=== PATIENT | male | born 1945 | race Caucasian/White ===

== ENCOUNTER → 2017-11-07 13:29 | Outpatient (CLI) | payer MEDICARE, OTHER, SELFPAY ==
[2017-11-07 15:19] LABS: Estimated Glomerular Filt Rate > 60.0 mL/min (>60)
== END ==
PROVIDERS: Family Provider Family Medicine; PCP Family Medicine; Visit Provider Radiology Radiation Oncology
DX: C44.320 Squamous cell carcinoma of skin of unspecified parts of face (principal)
CPT/HCPCS: 36415; 82565

== ENCOUNTER → 2017-11-28 11:07 | Outpatient (CLI) | payer OTHER, MEDICARE, SELFPAY ==
[2017-11-28 13:31] LABS: Appearance Urine UA CLOUDY; Bilirubin Urine UA NEGATIVE (NEGATIVE); Color Urine UA YELLOW; Glucose Urine UA NEGATIVE (Normal); Ketones Urine UA NEGATIVE (NEGATIVE); Leukocyte Esterase Urine UA 2+ (NEGATIVE); Nitrite Urine UA POSITIVE (Negative); Occult Blood Urine UA 3+ (Negative); Protein Urine UA 1+ (Negative); Urobilinogen Urine UA 0.2 E.U./dL (0.2)
[2017-11-28 13:41] LABS: RBC Urine 10-30/HPF (0-5/HPF)
[2017-11-28 13:42] LABS: Bacteria Urine Many (>30); Culture Indicated Urine Specimen Cultured; Squamous Epithelial Cell Urine 1-5 /HPF; WBC Urine >100/HPF (0-5/HPF)
== END ==
PROVIDERS: Family Provider Family Medicine; PCP Family Medicine; Visit Provider Family Medicine
DX: R30.0 Dysuria (principal); R35.0 Frequency of micturition
CPT/HCPCS: 81001; 87077; 87086; 87186

== ENCOUNTER → 2018-01-26 11:17 | Outpatient (CLI) | payer MEDICARE, OTHER, SELFPAY ==
[2018-01-26 12:19] LABS: Estimated Glomerular Filt Rate > 60.0 mL/min (>60)
--- NOTE | 2018-03-21 08:00 | ONC.NAV ---
Description: T[facility]C with [facility] re: [place] [facility] benefit (late entry, called on 03/20/18) Activity: Called the [facility] and spoke with Korin in the cancer clinic. She states that their committee met and agreed to authorize pt's [place] Choice benefit for pt's oncology tx here at [facility]. She stated it could take until the end of the week for it to show as effective in the [facility] Choice system, and that it should show as 03/20/18 as the effective date. Plan: This [employer]AGE [employer]ER will f/u on with calling the [facility] [employer] program to clarify effective date of eligibility.
== END ==
PROVIDERS: PCP Family Medicine; Visit Provider Radiology Radiation Oncology
DX: C44.320 Squamous cell carcinoma of skin of unspecified parts of face (principal)
CPT/HCPCS: 36415; 82565

== ENCOUNTER 2018-02-02 21:18 | Inpatient (IN) | payer MEDICARE, SELFPAY ==
--- NOTE | 2018-02-02 21:22 | ED.SYNCOPE ---
HPI - Syncope General Chief Complaint: Syncope Stated Complaint: Syncope Time Seen by Provider: 02/02/18 21:20 Source: patient and family Mode of arrival: EMS Limitations: no limitations History of Present Illness HPI narrative: 72-year-old male with a history of CVA, AFib on Xarelto presents with syncope. He was [place] a local [place] and passed out sitting a gambling she. He says he felt a bit funny prior to the episode. When EMS arrived they found him to be pale with cyanotic fingers and slightly obtained. He improved during transport and on arrival was alert oriented x3 but still pale and ill-appearing. He states he has had dark stools for the past few days. Patient denies any chest pain or shortness of breath MD complaint: loss of consciousness Onset (ago): minute(s) Prodromal symptoms: lightheaded Witnessed: yes - by bystander Context: at rest Injuries sustained associated with event: none Current symptoms: back to baseline Treatments prior to arrival: IV fluids Related Data Previous Rx's Medication Instructions Recorded Disabled Parking Permit ea #1 02/24/17 pantoprazole 40 mg PO 0600,2100 #58 tab 05/03/17 albuterol sulfate [Ventolin HFA] 2 puff INH Q4HP PRN #1 ea 07/05/17 benzonatate 100 mg PO TIDP PRN #30 cap 07/05/17 lisinopril 10 mg PO QDAY #30 tab 09/28/17 metoprolol succinate [Toprol XL] 100 mg PO QDAY #30 tab 09/28/17 atorvastatin 40 mg PO HS #90 tab 09/29/17 rivaroxaban 15 mg tablet 15 mg PO QDAY #30 tab 01/23/18 Allergies Allergy/AdvReac Type Severity Reaction Status Date / Time No Known Drug Allergies Allergy Verified 02/02/18 21:43 Review of Systems Review of Systems All systems reviewed & are unremarkable except as noted in HPI and below Constitutional Denies chills, Denies fever(s), Denies lethargy and Denies weakness Eyes Denies change in vision, Denies eye discharge, Denies irritation and Denies loss of vision ENT Ears, Nose, Mouth, and Throat: Denies change in voice, Denies neck pain and Denies sore throat Cardiovascular Denies chest pain, Denies irregular heart rhythm, Denies lightheadedness, Denies palpitations, Denies dyspnea, Denies dyspnea on exertion and Denies orthopnea Respiratory Denies cough, Denies dyspnea, Denies dyspnea on exertion and Denies wheezing Gastrointestinal Gastrointestinal: Denies abdominal pain, Denies change in bowel habits, Denies diarrhea, Denies nausea and Denies vomiting Genitourinary Denies hematuria, Denies flank pain, Denies urinary incontinence and Denies urinary urgency Musculoskeletal Denies neck pain Integumentary/Breasts Denies pruritus, Denies erythema, Denies rash and Denies wounds Neurologic Denies confusion, Denies loss of vision and Denies weakness Psychiatric Denies anxiety, Denies confusion, Denies depression, Denies homicidal ideation and Denies suicidal ideation Endocrine Denies palpitations Hematologic/Lymphatic Denies easy bruising Allergic/Immunologic Denies wheezing [facility] Medical History Cellulitis of right orbital region (Resolved) Altered mental status (Resolved) Stroke (Resolved) Intraparenchymal hemorrhage of brain (Resolved) TIA (transient ischemic attack) (Resolved) Rectal bleed (Suspected) Influenza A (Resolved) Weakness (Chronic) Benign prostatic hyperplasia (Chronic 09/01/15) Depression (Chronic 09/01/15) History of malignant neoplasm of skin (Chronic 09/01/15) Chronic atrial fibrillation (Chronic 09/29/15) Gastroesophageal reflux disease (Chronic 06/23/16) Fracture of corpus cavernosum penis, initial encounter (Chronic 06/23/16) Chronic fatigue (Chronic 06/23/16) Hyperlipidemia (Chronic) 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) Status post stroke (Chronic 02/24/17) Other specified transient cerebral ischemias (Chronic 03/22/17) Sore throat (Resolved 03/22/17) 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) History of upper gastrointestinal hemorrhage (Chronic 05/10/17) 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) Atrial fibrillation (Acute) CVA (cerebral vascular accident) (Acute) HTN (hypertension) (Acute) Hypertension (Chronic Unknown) Actinic keratosis (Resolved Unknown) Basal cell carcinoma (Resolved 2012) Chickenpox (Resolved) Measles (Resolved) Mumps (Resolved) Skin cancer (Resolved 2012) Surgical History History of facial surgery (Chronic) S/P skin and subcutaneous tissue surgery (Chronic) Social History marital status: unmarried,single household members: none lives independently: Yes Smoking Status: Current every day smoker (A pack a day) Tobacco: How many years used: 60 alcohol intake: never Exam Narrative Exam Narrative: 72-year-old male appears unwell and in distress Initial Vital Signs Initial Vital Signs: Vital Signs Temperature 97.5 F L 02/02/18 21:29 Pulse Rate 101 H 02/02/18 21:29 Respiratory Rate 20 02/02/18 21:29 Blood Pressure 120/68 02/02/18 21:29 Pulse Oximetry 93 02/02/18 21:29 Const General: cooperative, well developed and acute distress Nutritional Appearance: well nourished Orientation: alert, awake, oriented x3 and not confused HENMT Head: normocephalic and atraumatic Ears: external ears normal and TM's normal bilaterally Nose: external nose normal and No nasal discharge Face and sinus: sinuses nontender, face symmetric, no sinus tenderness and No dry mucous membranes Mouth: oral mucosae normal and moist mucous membranes Teeth and gingiva: dentition normal Throat: tonsils normal and uvula midline Eyes General: appearance normal, both eyes and all related structures Conjunctivae: conjunctival abnormality (Bilateral pallor) bilaterally Sclera: sclerae normal Pupils: PERRL EOM: EOM intact bilaterally Neck Neck: normal visual inspection, trachea midline, No lymphadenopathy, No midline deformity and No JVD Lymphatic: No lymphedema Chest Chest: normal inspection of the chest Resp Effort & Inspection: normal respiratory effort, able to speak in complete sentences, no respiratory distress and no use of accessory muscles Auscultation: clear to auscultation bilaterally, no rales, no rhonchi and no wheezes Cardio Rate: regular rate Rhythm: regular rhythm Heart Sounds: no click, no gallops, no murmurs and no rubs Pulses: normal peripheral pulses GI Inspection: non-distended Palpation: soft, no hepatosplenomegaly, No guarding, No pulsatile mass and No tender Auscultation: normal bowel sounds Rectal Exam: heme positive stool Back/Spine/Pelvis Back: No CVA tenderness Cervical Spine: cervical ROM normal and No pain with cervical ROM Thoracic/Lumbar Spine: thoracic and lumbar spine normal to inspection Skin General: no rashes or lesions noted, No jaundice and No petechiae Neuro General: alert, oriented x3, gait normal and no focal motor deficits Speech: speech normal Extrem General: full ROM, no clubbing, cyanosis or edema, no pedal edema and no calf tenderness Psych Appearance: well kempt Mental Status: mental status grossly normal Attitude: cooperative Thought Content: normal and suicidality Judgment: judgment good Course Orders Ordered: ED Orders 02/02/18 21:21 EKG-12 Lead Stat 02/02/18 21:41 Complete Blood Count AUTO DIFF Stat Comprehensive Metabolic Panel Stat Troponin & CK Cardiac Panel Stat Type and Screen Stat Discontinued Medications Fentanyl (Sublimaze) 50 mcg IV NOW ONE Stop: 02/02/18 22:06 Last Admin: 02/02/18 22:16 Dose: 50 mcg Consultations Consultation #1: Hospitalist is happy to accept this patient, and requests a courtesy call to General surgery (not consult) regarding this patient Consultation #2: Dr. Aponte notified of this patient and the possibility of consult moving forward Vital Signs - 8 hr 02/02/18 21:29 02/02/18 23:24 Temperature 97.5 F L Pulse Rate 101 H 97 H Respiratory Rate 20 Blood Pressure 120/68 Blood Pressure [Right Arm] 120/81 H Pulse Oximetry 93 MDM - Syncope Lab Data Result diagrams: 02/02/18 21:41 02/02/18 21:41 Lab Results 02/02/18 02/02/18 02/02/18 Range/Units 21:41 21:41 21:41 WBC 13.9 H (4.5-11.0) X10^3/uL RBC 3.04 L (4.5-5.9) X10^6/uL Hgb 8.3 L (13.5-17.5) g/dL Hct 25.2 L (41-53) % MCV 83.1 (80-100) fL MCH 27.4 (26-34) PG MCHC 32.9 (30-36) % RDW 14.5 (11.6-14.8) % Plt Count 136 L (150-400) X10^3/uL Neut % (Auto) 84.9 H (50-75) % Lymph % (Auto) 7.4 L (25-40) % [place] % (Auto) 7.2 (3-14) % Eos % (Auto) 0.3 L (2-4) % Baso % (Auto) 0.2 (0-2) % Neut # (Auto) 26781 H (4397-0403) /uL Sodium 140 (137-145) mmol/L Potassium 4.1 (3.4-5.1) mmol/L Chloride 106 (98-107) mmol/L Carbon Dioxide 19 L (22-32) mmol/L BUN 18 (9-20) mg/dL Creatinine 0.80 (0.66-1.25) mg/dL Estimated GFR > 60.0 (>60) mL/min BUN/Creatinine Ratio 22.5 H (6-22) Glucose 140 H (80-110) mg/dL Calcium 9.0 (8.4-10.2) mg/dL Total Bilirubin 0.3 (0.2-1.3) mg/dL AST 21 (17-59) IU/L ALT 22 (21-72) IU/L Alkaline Phosphatase 54 (38-126) U/L Total Creatine Kinase 121 (55-170) U/L CK-MB (CK-2) 2.03 (<2.37) ng/mL CK-MB (CK-2) Rel Index 1.7 (1.5-5.0) % Troponin I < 0.012 (0.01-0.034) ng/mL Total Protein 6.1 L (6.3-8.2) g/dL Albumin 3.8 (3.5-5.0) g/dL Globulin 2.3 (1.7-4.1) g/dL Albumin/Globulin Ratio 1.7 (1.0-2.8) Blood Type A Positive Antibody Screen Negative Discharge Plan Departure Patient Disposition: Admitted As Inpatient Clinical Impression: Acute upper gastrointestinal bleeding, Syncope Discharge Date/Time: 02/02/18 23:17 Admit Date/Time: 02/02/18 23:16 Admit Provider: Kwaku Mclaughlin
[2018-02-02 21:29] VITALS: BP 120/68; PULSE 101; RESP 20; TEMP 36.4; O2SAT 93
--- NOTE | 2018-02-02 21:42 | PC.NURSE ---
Pt reports had black stool this AM.
[2018-02-02 21:56] LABS: Add Manual Diff / Slide Review NO; Basophils Percent Auto 0.2 % (0-2); Eosinophils Percent Auto 0.3 % (2-4); Hematocrit 25.2 % (41-53); Hemoglobin 8.3 g/dL (13.5-17.5); Lymphocytes Percent Auto 7.4 % (25-40); Mean Corpuscular HGB Conc 32.9 % (30-36); Mean Corpuscular Hemoglobin 27.4 PG (26-34); Mean Corpuscular Volume 83.1 fL (80-100); Monocytes Percent Auto 7.2 % (3-14); Neutrophils Absolute Auto 11800 /uL (3000-5900); Neutrophils Percent Auto 84.9 % (50-75); Platelet Count 136 X10^3/uL (150-400); Red Blood Cell Count 3.04 X10^6/uL (4.5-5.9); Red Cell Distribution Width 14.5 % (11.6-14.8); White Blood Cell Count 13.9 X10^3/uL (4.5-11.0)
[2018-02-02 22:09] LABS: Alanine Aminotransferase 22 IU/L (21-72); Albumin 3.8 g/dL (3.5-5.0); Albumin Globulin Ratio 1.7 (1.0-2.8); Alkaline Phosphatase 54 U/L (38-126); Aspartate Aminotransferase 21 IU/L (17-59); BUN Creatinine Ratio 22.5 (6-22); Bilirubin Total 0.3 mg/dL (0.2-1.3); Blood Urea Nitrogen 18 mg/dL (9-20); Carbon Dioxide 19 mmol/L (22-32); Chloride 106 mmol/L (98-107); Creatine Kinase 121 U/L (55-170); Estimated Glomerular Filt Rate > 60.0 mL/min (>60); Globulin 2.3 g/dL (1.7-4.1); Glucose 140 mg/dL (80-110); HEMOLYSIS < 15 (0-50); Potassium 4.1 mmol/L (3.4-5.1); Sodium 140 mmol/L (137-145); Total Protein 6.1 g/dL (6.3-8.2)
[2018-02-02] MEDS: fentaNYL 100 MCG/2 ML INJ 50 MCG IV (22:16)
[2018-02-02 22:21] LABS: Troponin I < 0.012 ng/mL (0.01-0.034)
[2018-02-02 22:24] LABS: CKMB % Relative Index 1.7 % (1.5-5.0); Creatine Kinase MB 2.03 ng/mL (<2.37)
--- NOTE | 2018-02-02 22:35 | PC.NURSE ---
pt reported 9/10 jaw pain from Hx of cancer. Fentanly given. Pain reassesed as 2/10 right jaw pain.
[2018-02-02 23:24] VITALS: BP 120/81; PULSE 97
[2018-02-03] VITALS (7 sets, daily range): BP systolic 107–130; BP diastolic 50–80; PULSE 24–100; RESP 14–20; TEMP 36.1–37.2; O2SAT 92–100; BMI 24.9
[2018-02-03] MEDS: HYDROMORPHONE 0.5 MG INJ 1 MG IV (00:16)
--- NOTE | 2018-02-03 01:59 | PC.ADMIT ---
[id number] Admission Note: Pt arrived to room 105 from the ER at 0055. Pt is oriented x3, unable to transfer himself to the bed indep due to weakness, slider board used. Pt reports that he has not had much energy for nearly a year, he has history of cancer to his jaw which he has had radiation on in the past but he is unsure when that was, he has appt to see oncologist in February due to increased pain to sight as well as a firm mass to the right side of his jaw. Denies pain at this time, medicated in ER. Tele Afib RVR. Denies chest pain at this time. Daily smopker and denies need for nicotine patch. Pt was on 2L in ER, now on 1L with sats 96-99%. Pt oriented to room and call light. Bed alarm on. The patient,Sudhir Pond,72 y/o, was given written information regarding hospital policies, unit procedures and contact persons. Patient's smoking status: Current every day smoker. Vital Signs - 8 hr 02/02/18 21:29 02/02/18 23:24 02/03/18 00:40 Temperature 97.5 F L 99.0 F Pulse Rate 101 H 97 H 100 H Respiratory Rate 20 17 Blood Pressure 120/68 124/80 H Blood Pressure [Right Arm] 120/81 H Pulse Oximetry 93 100
[2018-02-03] MEDS: SODIUM CHLORIDE 0.9% 1,000 ML 80 ML IV ×2 (02:00→14:04)
[2018-02-03 05:02] LABS: Add Manual Diff / Slide Review NO; Basophils Percent Auto 0.1 % (0-2); Eosinophils Percent Auto 0.3 % (2-4); Hematocrit 22.8 % (41-53); Hemoglobin 7.6 g/dL (13.5-17.5); Lymphocytes Percent Auto 11.4 % (25-40); Mean Corpuscular HGB Conc 33.2 % (30-36); Mean Corpuscular Hemoglobin 27.8 PG (26-34); Mean Corpuscular Volume 83.8 fL (80-100); Monocytes Percent Auto 6.2 % (3-14); Neutrophils Absolute Auto 7700 /uL (3000-5900); Platelet Count 117 X10^3/uL (150-400); Red Blood Cell Count 2.72 X10^6/uL (4.5-5.9); Red Cell Distribution Width 14.2 % (11.6-14.8); White Blood Cell Count 9.4 X10^3/uL (4.5-11.0)
[2018-02-03 07:51] LABS: Appearance Urine UA CLEAR; Bacteria Urine None Seen; Bilirubin Urine UA NEGATIVE (NEGATIVE); Color Urine UA YELLOW; Glucose Urine UA NEGATIVE (Normal); Ketones Urine UA NEGATIVE (NEGATIVE); Leukocyte Esterase Urine UA NEGATIVE (NEGATIVE); Nitrite Urine UA Negative (Negative); Occult Blood Urine UA TRACE-INTACT (Negative); Protein Urine UA NEGATIVE (Negative); RBC Urine None Seen (0-5/HPF); Urobilinogen Urine UA 0.2 E.U./dL (0.2); WBC Urine None Seen (0-5/HPF); pH Urine UA 5.5 (4.5-8.0)
[2018-02-03 07:56] LABS: Culture Indicated Urine Cult Not Indicated; Urine Comments Microscopic Normal
[2018-02-03] MEDS: PANTOPRAZOLE 40 MG VIAL IV ×2 (08:15→20:02)
[2018-02-03] MEDS: HYDROMORPHONE 1 MG INJ IV ×3 (08:26→20:03)
--- NOTE | 2018-02-03 09:37 | PM.HP.1 ---
History of Present Illness Date Patient Seen: 02/03/18 Time Patient Seen: 09:38 Chief complaint: Syncope Narrative: This very pleasant gentleman was admitted following up passing out while he [place] sitting in a [place] he had been having melena for about a week or so And yesterday he passed out and was brought to the ER somewhat up to 100 and hypoxic which she recovered during transport [place] the casino to the ER Diagnosis is the stools are brown and not black anymore HIS USUAL HEMOGLOBINS HAVE BEEN AROUND 11.5 DURING LAST YEAR AND WAS 8.3 YESTERDAY AND 7.6 TODAY HE went to see his primary care physician for progressive fatigue but a month ago and metoprolol was stopped but the patient received it because he did feel any different without it He is on Xarelto for chronic atrial fibrillation prevention of stroke is at previous history of CVA DOES NOT COMPLAIN OF ANY ABDOMINAL PAIN HAS THE RIGHT JAW PAIN THAT HE HAS SQUAMOUS CELL CARCINOMA Patient History Medical History Cellulitis of right orbital region (Resolved) Altered mental status (Resolved) Stroke (Resolved) Intraparenchymal hemorrhage of brain (Resolved) TIA (transient ischemic attack) (Resolved) Rectal bleed (Suspected) Influenza A (Resolved) Weakness (Chronic) Benign prostatic hyperplasia (Chronic 09/01/15) Depression (Chronic 09/01/15) History of malignant neoplasm of skin (Chronic 09/01/15) Chronic atrial fibrillation (Chronic 09/29/15) Gastroesophageal reflux disease (Chronic 06/23/16) Fracture of corpus cavernosum penis, initial encounter (Chronic 06/23/16) Chronic fatigue (Chronic 06/23/16) Hyperlipidemia (Chronic) 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) Status post stroke (Chronic 02/24/17) Other specified transient cerebral ischemias (Chronic 03/22/17) Sore throat (Resolved 03/22/17) 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) History of upper gastrointestinal hemorrhage (Chronic 05/10/17) 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) Atrial fibrillation (Acute) CVA (cerebral vascular accident) (Acute) HTN (hypertension) (Acute) Hypertension (Chronic Unknown) Actinic keratosis (Resolved Unknown) Basal cell carcinoma (Resolved 2012) Chickenpox (Resolved) Measles (Resolved) Mumps (Resolved) Skin cancer (Resolved 2012) Surgical History History of facial surgery (Chronic) S/P skin and subcutaneous tissue surgery (Chronic) Family & Social History Social History: household members family,none Prior Living Arrangements House lives independently Yes Safety & Behavioral: Feels Safe in Current Yes Environment Been Physically Hurt or No Threatened By a Person Suicidal Ideation Description None Tobacco & Substance use: Tobacco type cigarettes,cannabis/marijuana Smoking Status Current every day smoker Smoking packs per day 0.5 alcohol intake never Substance Use Type marijuana Meds Home Medications Medication Instructions Recorded Confirmed Type pantoprazole 40 mg PO 0600,2100 #58 tab 05/03/17 02/03/18 Rx metoprolol succinate [Toprol XL] 100 mg PO QDAY #30 tab 09/28/17 02/03/18 Rx atorvastatin 40 mg PO HS #90 tab 09/29/17 02/03/18 Rx rivaroxaban 15 mg tablet 15 mg PO QDAY #30 tab 01/23/18 02/03/18 Rx Allergies Allergy/AdvReac Type Severity Reaction Status Date / Time No Known Drug Allergies Allergy Verified 02/02/18 21:43 Review of Systems Review of Systems [place] REVIEW OF SYSTEMS SHOWS HE HAS PAIN IN THE RIGHT JAW NO ABDOMINAL PAIN NO NAUSEA VOMITING OR HEMATEMESIS ALL OTHER SYSTEMS ARE NEGATIVE Exam Vital Signs (past 8 hours): - 02/03/18 04:45 02/03/18 08:00 Temperature 97.9 F 97.3 F L Pulse Rate 74 89 Respiratory Rate 17 20 Blood Pressure 107/63 126/78 H Pulse Oximetry 100 93 Oxygen Delivery Method Nasal Cannula Const General: cooperative, comfortable and well developed Orientation: alert, awake and oriented x3 HENMT Head: normal to inspection Ears: hearing grossly normal bilaterally Nose: external nose normal Face and sinus: normal facial exam Mouth: oral mucosae normal Eyes General: appearance normal, both eyes and all related structures Eyelids: eyelids normal Conjunctivae: conjunctivae normal Sclera: sclerae normal EOM: EOM intact bilaterally Neck Neck: normal visual inspection Thyroid: thyroid normal Resp Effort & Inspection: normal respiratory effort, no respiratory distress and no use of accessory muscles Auscultation: clear to auscultation bilaterally Cardio Rhythm: abnormal rhythm irregularly irregular Heart Sounds: S1 normal and S2 normal GI Inspection: normal to inspection Palpation: soft and no hepatosplenomegaly Auscultation: normal bowel sounds Skin General: no rashes or lesions noted Neuro General: alert, awake, oriented x3 and no meningeal signs Cranial Nerves: CN's II-XI intact bilaterally Cognition: normal cognition Speech: speech normal Motor: muscle tone normal throughout (EXCEPT LT HAND ) Extrem Other: NIL EDEMA Psych Appearance: grossly normal Speech and Movement: speech and movement normal Mood: congruent mood Affect: normal affect Attitude: cooperative Thought Process: normal Thought Content: normal Judgment: judgment good Objective Labs Result Diagrams: 02/03/18 04:36 02/02/18 21:41 Labs: Laboratory Results - last 24 hr 02/02/18 02/02/18 02/02/18 21:41 21:41 21:41 WBC 13.9 H RBC 3.04 L Hgb 8.3 L Hct 25.2 L MCV 83.1 MCH 27.4 MCHC 32.9 RDW 14.5 Plt Count 136 L Neut % (Auto) 84.9 H Lymph % (Auto) 7.4 L [place] % (Auto) 7.2 Eos % (Auto) 0.3 L Baso % (Auto) 0.2 Neut # (Auto) 68420 H Sodium 140 Potassium 4.1 Chloride 106 Carbon Dioxide 19 L BUN 18 Creatinine 0.80 Estimated GFR > 60.0 BUN/Creatinine Ratio 22.5 H Glucose 140 H Calcium 9.0 Total Bilirubin 0.3 AST 21 ALT 22 Alkaline Phosphatase 54 Total Creatine Kinase 121 CK-MB (CK-2) 2.03 CK-MB (CK-2) Rel Index 1.7 Troponin I < 0.012 Total Protein 6.1 L Albumin 3.8 Globulin 2.3 Albumin/Globulin Ratio 1.7 Urine Color Urine Appearance Urine pH Ur Specific [place] Urine Protein Urine Glucose (UA) Urine Ketones Urine Occult Blood Urine Nitrate Urine Bilirubin Urine Urobilinogen Ur Leukocyte Esterase Urine RBC Urine WBC Urine Bacteria Ur Culture Indicated? Micro UA Comment Nasal Screen MRSA (PCR) Blood Type A Positive Antibody Screen Negative 02/03/18 02/03/18 02/03/18 04:00 04:36 07:45 WBC 9.4 RBC 2.72 L Hgb 7.6 L Hct 22.8 L MCV 83.8 MCH 27.8 MCHC 33.2 RDW 14.2 Plt Count 117 L Neut % (Auto) 82.0 H Lymph % (Auto) 11.4 L [place] % (Auto) 6.2 Eos % (Auto) 0.3 L Baso % (Auto) 0.1 Neut # (Auto) 7700 H Sodium Potassium Chloride Carbon Dioxide BUN Creatinine Estimated GFR BUN/Creatinine Ratio Glucose Calcium Total Bilirubin AST ALT Alkaline Phosphatase Total Creatine Kinase CK-MB (CK-2) CK-MB (CK-2) Rel Index Troponin I Total Protein Albumin Globulin Albumin/Globulin Ratio Urine Color Yellow Urine Appearance Clear Urine pH 5.5 Ur Specific [place] 1.010 Urine Protein Negative Urine Glucose (UA) Negative Urine Ketones Negative Urine Occult Blood Trace-intact Urine Nitrate Negative Urine Bilirubin Negative Urine Urobilinogen 0.2 Ur Leukocyte Esterase Negative Urine RBC None seen Urine WBC None seen Urine Bacteria None seen Ur Culture Indicated? Cult not indicated Micro UA Comment Microscopic normal Nasal Screen MRSA (PCR) Negative for mrsa Blood Type Antibody Screen Assessment & Plan Plan: Assessment/Plan Narrative: 1. SEVERE ANEMIA D/T ACUTE BLOOD LOSS GI BLEED MONITOR THE H&H AND TRANSFUSE IF BELOW [address] STRANGE TO SEE IF HE NEEDS ENDOSCOPY DURING HIS ADMISSION 2. XARELTO FOR CHRONIC ATRIAL FIBRILLATION WILL BE HELD RISK BENEFIT FOR PREVENTION OF STROKE POINTS MORE TOWARDS THE RISK OF BLEEDING AND HE DID HAVE LEFT SIDED CVA AND TIA INVOLVING THE LEFT HAND ON 2 OCCASIONS 3. PAIN CONTROL FOR HIS RIGHT JAW VARIOUS SQUAMOUS CELL CARCINOMA STATUS POST RADIATION THERAPY 4.RATE CONTROL FOR HIS ATRIAL FIBRILLATION Time Spent With Patient Time with patient: Greater than 35 minutes Quality VTE Deep Vein Thrombosis/Pulmonary Embolism Present on Admission: No
[2018-02-03 10:10] LABS: Hemoglobin 7.7 g/dL (13.5-17.5)
[2018-02-03 14:16] LABS: Hematocrit 23.6 % (41-53); Hemoglobin 7.8 g/dL (13.5-17.5)
--- NOTE | 2018-02-03 14:22 | PM.CN ---
History of Present Illness Date Patient Seen: 02/03/18 Time Patient Seen: 14:23 Chief complaint: Syncope Reason for consult: Melena Requesting provider: Kwaku Mclaughlin Narrative: 72-year-old male who presented with several day history of melena. He is not having any abdominal pain. No nausea or vomiting. No hematemesis. Otherwise tolerating a diet without any issues. However, he was passing dark tarry stools for several days. [place] when he arose from his chair and became syncopal. He was brought [facility] emergency department where evaluation showed an to be significantly anemic but without evidence of any cardiovascular event. He normally is anticoagulated for prior TIA on Xarelto. Hemoglobin is approximately 7.7 today but he has not required transfusion since admission. Currently his bowel movements are described as formed and normal in color. No further melena or bright red blood per rectum. He is hungry and wishes to eat a regular diet. Of note, he has been taking a significant amount of [id number]-[id number] nonsteroidal anti-inflammatory medications including ibuprofen and extra-strength Excedrin for mandibular pain related to his recent radiation therapy. 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 He refused surgical resection. He otherwise has no history of ulcer disease or other gastrointestinal pathology. [facility] Medical History Cellulitis of right orbital region (Resolved) Altered mental status (Resolved) Stroke (Resolved) Intraparenchymal hemorrhage of brain (Resolved) TIA (transient ischemic attack) (Resolved) Rectal bleed (Suspected) Influenza A (Resolved) Weakness (Chronic) Benign prostatic hyperplasia (Chronic 09/01/15) Depression (Chronic 09/01/15) History of malignant neoplasm of skin (Chronic 09/01/15) Chronic atrial fibrillation (Chronic 09/29/15) Gastroesophageal reflux disease (Chronic 06/23/16) Fracture of corpus cavernosum penis, initial encounter (Chronic 06/23/16) Chronic fatigue (Chronic 06/23/16) Hyperlipidemia (Chronic) 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) Status post stroke (Chronic 02/24/17) Other specified transient cerebral ischemias (Chronic 03/22/17) Sore throat (Resolved 03/22/17) 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) History of upper gastrointestinal hemorrhage (Chronic 05/10/17) 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) Atrial fibrillation (Acute) CVA (cerebral vascular accident) (Acute) HTN (hypertension) (Acute) Hypertension (Chronic Unknown) Actinic keratosis (Resolved Unknown) Basal cell carcinoma (Resolved 2013) Chickenpox (Resolved) Measles (Resolved) Mumps (Resolved) Skin cancer (Resolved 2012) Surgical History History of facial surgery (Chronic) S/P skin and subcutaneous tissue surgery (Chronic) Family History Mother Age: 96 Heart trouble Pacemaker Father Heart trouble Social History marital status: unmarried,single household members: family and none lives independently: Yes Smoking Status: Current every day smoker Tobacco: How many years used: 60 alcohol intake: never Meds Home Medications Medication Instructions Recorded Confirmed Type pantoprazole 40 mg PO 0600,2100 #58 tab 05/03/17 02/03/18 Rx metoprolol succinate [Toprol XL] 100 mg PO QDAY #30 tab 09/28/17 02/03/18 Rx atorvastatin 40 mg PO HS #90 tab 09/29/17 02/03/18 Rx rivaroxaban 15 mg tablet 15 mg PO QDAY #30 tab 01/23/18 02/03/18 Rx Allergies Allergy/AdvReac Type Severity Reaction Status Date / Time No Known Drug Allergies Allergy Verified 02/02/18 21:43 Review of Systems Review of Systems All systems reviewed & are unremarkable except as noted in HPI and below Exam Vital Signs (past 8 hours): - 02/03/18 08:00 02/03/18 12:00 Temperature 97.3 F L 97.0 F L Pulse Rate 89 74 Respiratory Rate 20 15 Blood Pressure 126/78 H 110/61 Pulse Oximetry 93 92 Oxygen Delivery Method Nasal Cannula Narrative Exam Narrative: Well-nourished well-developed elderly male lying comfortably in bed in no acute distress. Alert oriented x3. His significant other and daughter at the bedside for my entire visit. He has multiple scars throughout the scalp, right ear, right eye, and face consistent with prior excisions of squamous cell carcinoma the skin. He has skin changes including thickening of the right mandibular region consistent with recent radiation therapy. Neck is otherwise supple without masses. Chest clear auscultation bilaterally Abdomen soft, nondistended, nontender, no masses Extremities show no clubbing, cyanosis, or edema Objective Labs Result Diagrams: 02/03/18 09:05 02/02/18 21:41 Labs: Laboratory Results - last 24 hr 02/02/18 02/02/18 02/02/18 21:41 21:41 21:41 WBC 13.9 H RBC 3.04 L Hgb 8.3 L Hct 25.2 L MCV 83.1 MCH 27.4 MCHC 32.9 RDW 14.5 Plt Count 136 L Neut % (Auto) 84.9 H Lymph % (Auto) 7.4 L [place] % (Auto) 7.2 Eos % (Auto) 0.3 L Baso % (Auto) 0.2 Neut # (Auto) 28791 H Sodium 140 Potassium 4.1 Chloride 106 Carbon Dioxide 19 L BUN 18 Creatinine 0.80 Estimated GFR > 60.0 BUN/Creatinine Ratio 22.5 H Glucose 140 H Calcium 9.0 Total Bilirubin 0.3 AST 21 ALT 22 Alkaline Phosphatase 54 Total Creatine Kinase 121 CK-MB (CK-2) 2.03 CK-MB (CK-2) Rel Index 1.7 Troponin I < 0.012 Total Protein 6.1 L Albumin 3.8 Globulin 2.3 Albumin/Globulin Ratio 1.7 Urine Color Urine Appearance Urine pH Ur Specific [place] Urine Protein Urine Glucose (UA) Urine Ketones Urine Occult Blood Urine Nitrate Urine Bilirubin Urine Urobilinogen Ur Leukocyte Esterase Urine RBC Urine WBC Urine Bacteria Ur Culture Indicated? Micro UA Comment Nasal Screen MRSA (PCR) Blood Type A Positive Antibody Screen Negative 02/03/18 02/03/18 02/03/18 04:00 04:36 07:45 WBC 9.4 RBC 2.72 L Hgb 7.6 L Hct 22.8 L MCV 83.8 MCH 27.8 MCHC 33.2 RDW 14.2 Plt Count 117 L Neut % (Auto) 82.0 H Lymph % (Auto) 11.4 L [place] % (Auto) 6.2 Eos % (Auto) 0.3 L Baso % (Auto) 0.1 Neut # (Auto) 7700 H Sodium Potassium Chloride Carbon Dioxide BUN Creatinine Estimated GFR BUN/Creatinine Ratio Glucose Calcium Total Bilirubin AST ALT Alkaline Phosphatase Total Creatine Kinase CK-MB (CK-2) CK-MB (CK-2) Rel Index Troponin I Total Protein Albumin Globulin Albumin/Globulin Ratio Urine Color Yellow Urine Appearance Clear Urine pH 5.5 Ur Specific [place] 1.010 Urine Protein Negative Urine Glucose (UA) Negative Urine Ketones Negative Urine Occult Blood Trace-intact Urine Nitrate Negative Urine Bilirubin Negative Urine Urobilinogen 0.2 Ur Leukocyte Esterase Negative Urine RBC None seen Urine WBC None seen Urine Bacteria None seen Ur Culture Indicated? Cult not indicated Micro UA Comment Microscopic normal Nasal Screen MRSA (PCR) Negative for mrsa Blood Type Antibody Screen 02/03/18 09:05 WBC RBC Hgb 7.7 L Hct 23.0 L MCV MCH MCHC RDW Plt Count Neut % (Auto) Lymph % (Auto) [place] % (Auto) Eos % (Auto) Baso % (Auto) Neut # (Auto) Sodium Potassium Chloride Carbon Dioxide BUN Creatinine Estimated GFR BUN/Creatinine Ratio Glucose Calcium Total Bilirubin AST ALT Alkaline Phosphatase Total Creatine Kinase CK-MB (CK-2) CK-MB (CK-2) Rel Index Troponin I Total Protein Albumin Globulin Albumin/Globulin Ratio Urine Color Urine Appearance Urine pH Ur Specific [place] Urine Protein Urine Glucose (UA) Urine Ketones Urine Occult Blood Urine Nitrate Urine Bilirubin Urine Urobilinogen Ur Leukocyte Esterase Urine RBC Urine WBC Urine Bacteria Ur Culture Indicated? Micro UA Comment Nasal Screen MRSA (PCR) Blood Type Antibody Screen Assessment & Plan Plan: Assessment/Plan Narrative: 72-year-old male with probable upper gastrointestinal hemorrhage resulting in symptomatic anemia and subsequent syncope. He is showing no evidence of ongoing hemorrhage at the moment. He currently is asymptomatic. However, his anticoagulation therapy is obviously on hold. The major question will be a time at which she will be reasonably safe to restart his Xarelto. In my opinion, this would depend largely on the potential pathology present. If he has large ulcers with recent sequela of bleeding requiring intervention such as epinephrine injection or monopolar cautery then he would need 4-6 weeks for adequate healing on appropriate medical therapy. The has simple NSAID associated gastritis that he could be treated medically and his anticoagulation could be restarted relatively soon. However, he does clearly need an alternative to nonsteroidal anti inflammatory therapy for his mandibular pain. I believe that opioid medications would be indicated for that reason. He is receiving such during this hospitalization, but he is awaiting a pain clinic consultation that may take some time. I have clearly recommended he cease all NSAID use if possible. Agree with ongoing proton pump inhibitor therapy. He may require the addition of Carafate depending upon underlying pathology. I therefore I have also recommended EGD during this admission once his anticoagulation has completely reversed by metabolic pathways. He requires another day or 2 for that to be accomplished. I will therefore tentatively plan EGD on Monday February 05, 2018. I discussed this with the patient as well as the technical details of upper endoscopy. Potential interventions that may be indicated such as epinephrine injection and monopolar cautery were also discussed. He understands the study may be entirely normal. Of note, he has never had colonoscopy but I do not believe this is a lower gastrointestinal hemorrhage source at this time. Risks, benefits, and alternatives to EGD were discussed. Risks including but not limited to sedation, aspiration, further bleeding, nondiagnostic study, pain, missed lesion, successful intervention but with recurrent bleeding at a future time, esophageal perforation, gastric perforation, duodenal perforation, need for major thoracic surgery, need for major abdominal surgery, and all attendant risks of such operations were discussed in detail. All questions were answered to his satisfaction, and he voiced understanding. Consent was placed on the chart. We will proceed as above. In the interim he may have a diet as tolerated since he appears to be stable with no current bleeding.
[2018-02-03 14:33] LABS: HEMOLYSIS < 15 (0-50); Iron 12 ug/dL (49-181)
[2018-02-03 14:44] LABS: Percent Iron Saturation 3 % (20-50); Total Iron Binding Capacity 402 ug/dL (261-462); Transferrin 334 mg/dL (206-381)
--- NOTE | 2018-02-03 16:18 | CM.DANOTE ---
Addendum entered by Rachel Alvarez LPN 02/04/18 10:21: EMR reviewed this morning and plan for EGD tomorrow 02/05, pending anticoagulation reversal, is noted. Went to room to check in with pt. He was moved from ICU room to 210 today and now is lying quietly on bed, eyes closed. Does not rouse to voice. White Board in room is updated with DCP contact information. Will be following to assist with d/c needs as they arise. Original Note: Discharge Planning/Care Management DCP: assessment: Case received, EMR reviewed. Due to limited CM/DCPlanner staffing today and triage of caseload decision made to see pt in the morning. CM Discharge Assessment Start: 02/03/18 16:13 Freq: Status: Active Protocol: Document 02/03/18 16:14 ITV (Rec: 02/03/18 16:17 ITV [id number]) Discharge Planning Assessment Advance Directives? No Advance Directives on File Yes History Provided By Medical Record Prior Living Arrangements House Household Members family none Comment Pt will be here tomorrow. Will plan to check in with pt tomorrow for assessment and white board update. Pt is admitted to hospitalist service with general surgery consulting. Review Status In Process Next Review Type Continued Stay Review
--- NOTE | 2018-02-03 17:04 | PC.NURSE ---
Evening Shift Note Pt complaint of nausea and episode of emesis x1 prior to dinner at 1700. Pt expressed feeling similar to prior to syncopal episode yesterday. BP 124/60, HR 80, pt w/ good color. No orders for antiemetic, hospitalist called, new orders received and carried out. Will continue to monitor.
[2018-02-03] MEDS: ONDANSETRON 4 MG/2 ML INJ IV (18:54)
[2018-02-03 21:09] LABS: Hemoglobin 7.1 g/dL (13.5-17.5)
[2018-02-03 21:17] LABS: Hematocrit 21.6 % (41-53)
[2018-02-04] VITALS (15 sets, daily range): BP systolic 102–142; BP diastolic 59–96; PULSE 70–106; RESP 16–70; TEMP 36.6–37.9; O2SAT 93–99
[2018-02-04] MEDS: CALCIUM CARBONATE 500 MG TAB 1000 MG PO (00:21)
[2018-02-04] MEDS: SODIUM CHLORIDE 0.9% 1,000 ML 80 ML IV (01:30)
[2018-02-04] MEDS: HYDROMORPHONE 1 MG INJ IV ×2 (01:35→09:17)
--- NOTE | 2018-02-04 07:07 | PC.NURSE ---
shift supervisor: Pt had no c/o nausea overnight, he have heart burn which made him uncomfortable. MD notified and new order for TUMS. Pt medicated and no new c/o heartburn. Medicated with 1mg Dilaudid overnight for ongoing right side jaw pain.
[2018-02-04] MEDS: PANTOPRAZOLE 40 MG VIAL IV ×2 (09:13→20:27)
[2018-02-04] MEDS: CALCIUM CARBONATE 500 MG TAB PO (09:18)
--- NOTE | 2018-02-04 09:48 | PC.NURSE ---
Pt transferred to room 210, report given to NOEMY Morgan. Pt thought he might be having a BM but only passed gas. Given dilaudid 1mg IV for pain in jaw. Taken by wheelchair to room 210.
--- NOTE | 2018-02-04 10:45 | PC.NURSE ---
1000 Pt transfered from ICU via w/c, Pt on r/a, has infusing IVF to R hand. Pt states is tired and has a dry mouth from the previous pain medication. SR up, gave Pt ice chips, PT is to be NPO after MN for scope tomorrow.
[2018-02-04 11:31] LABS: Hematocrit 21.3 % (41-53)
--- NOTE | 2018-02-04 12:46 | P.PN_ITS ---
Subjective Date Patient Seen: 02/04/18 Time Patient Seen: 09:39 Interval history: THIS GENTLEMAN IS ADMITTED FOLLOWING SYNCOPAL EPISODE HAD MELENA FOR ABOUT A WEEK PRIOR TO THE ADMISSION ON THE DAY OF ADMISSION 1 HR PRIOR TO ADMISSION HE HAD BROWNISH STOOL HIS HEMOGLOBIN AT STAR DROPPED FROM 11.6 THE LAST YEAR TO 8.6 ON THE DAY OF ADMISSION AND SUBSEQUENTLY IS DOWN TO 7 HE WILL BE RECEIVING BLOOD TRANSFUSION TODAY HE HAS CHRONIC ATRIAL FIBRILLATION AND IS ON XARELTO FOR STROKE PREVENTION AND THAT COULD BE THE UNDERLYING CAUSE FOR HIS CONTINUED BLEEDING THE XARELTO HAS BEEN STOPPED THE RATE CONTROL WAS WITH METOPROLOL THAT IS BEING HELD WELL BECAUSE OF THE HYPOTENSION SYNCOPE FOLLOWING THE BLOOD LOSS IS HEART RATE IS FAIRLY CONTROLLED EVEN WITHOUT THE METOPROLOL AT THIS TIME ID GENERAL SURGERY CONSULT WITH DR. STRANGE THE PATIENT WILL BE GETTING AN UPPER GI ENDOSCOPY TOMORROW DEPENDING ON THE RESULTS OF THAT THE TIMING OF THE RESUMING OF XARELTO WILL BE RECOMMENDED Exam Vital Signs (past 8 hours): - 02/04/18 06:00 02/04/18 08:00 02/04/18 09:32 Temperature 98 F 98.2 F Pulse Rate 72 88 Respiratory Rate 16 18 Blood Pressure 114/66 120/59 L Pulse Oximetry 95 99 97 Oxygen Delivery Method Room Air Oxygen Flow Rate 0 Const General: cooperative, healthy appearing, comfortable and well developed Orientation: alert, awake and oriented x3 [facility] Head: normocephalic, atraumatic and other (HAS EVIDENCE OF SQ CELL CA EXCISION AND RADIATION RX TO JAW) Ears: hearing grossly normal bilaterally Nose: external nose normal Face and sinus: normal facial exam Mouth: oral mucosae normal Eyes General: appearance normal, both eyes and all related structures Eyelids: eyelids normal Conjunctivae: conjunctivae normal Sclera: sclerae normal EOM: EOM intact bilaterally Neck Neck: normal visual inspection, full ROM and No JVD Thyroid: thyroid normal Resp Effort & Inspection: normal respiratory effort, able to speak in complete sentences, no respiratory distress and no use of accessory muscles Auscultation: clear to auscultation bilaterally Cardio Rate: regular rate Rhythm: abnormal rhythm irregularly irregular Heart Sounds: S1 normal and S2 normal GI Inspection: normal to inspection Palpation: soft and no hepatosplenomegaly Skin General: no rashes or lesions noted Neuro General: alert, awake, oriented x3 and no meningeal signs Cranial Nerves: CN's II-XI intact bilaterally Cognition: normal cognition Speech: speech normal Motor: muscle tone normal throughout Extrem Other: NIL EDEMA Psych Appearance: grossly normal Speech and Movement: speech and movement normal Mood: congruent mood Affect: normal affect Attitude: cooperative Thought Process: normal Thought Content: normal Judgment: judgment good Objective Labs Result Diagrams: 02/04/18 10:43 02/02/18 21:41 Labs: Laboratory Results - last 24 hr 02/03/18 02/03/18 02/03/18 14:05 14:05 20:52 Hgb 7.8 L 7.1 L Hct 23.6 L 21.6 L Iron 12 L TIBC 402 % Saturation 3 L Transferrin 334 02/04/18 10:43 Hgb 7.0 L Hct 21.3 L Iron TIBC % Saturation Transferrin Assessment & Plan Plan: Assessment/Plan Narrative: 1. SYNCOPAL EPISODE RESOLVED 2. ACUTE GASTROINTESTINAL BLEEDING WITH MELENA NO FURTHER MELENA IN THE STOOLS ARE BROWNISH PLAN EGD TOMORROW BY DR. STRANGE 3. ACUTE SEVERE ANEMIA SECONDARY TO GI BLEED REQUIRING TRANSFUSION HEMOGLOBIN IS DROPPED FROM 11.6 BASELINE LAST YEAR TO 7.1 TODAY 4. CHRONIC ATRIAL FIBRILLATION RATE CONTROLLED METOPROLOL IS ON HOLD 5. XARELTO FOR STROKE PREVENTION IS ON HOLD Time Spent With Patient Time with patient: 25 - 35 minutes Quality VTE Deep Vein Thrombosis/Pulmonary Embolism Present on Admission: No
--- NOTE | 2018-02-04 15:29 | PM.PN.1 ---
Subjective Date Patient Seen: 02/04/18 Time Patient Seen: 15:29 Interval history: No further melena or bright red blood per rectum. Denies any abdominal pain. Tolerating a regular diet without nausea or vomiting. Exam Vital Signs (past 8 hours): - 02/04/18 08:00 02/04/18 09:32 02/04/18 12:15 Temperature 98.2 F 97.9 F Pulse Rate 88 106 H Respiratory Rate 18 20 Blood Pressure 120/59 L 115/82 H Pulse Oximetry 99 97 95 Oxygen Delivery Method Room Air Oxygen Flow Rate 0 Narrative Exam Narrative: Resting comfortably in bed in no acute distress. Alert oriented x3. is at bedside. Abdomen soft, nondistended, nontender, no masses Objective Labs Result Diagrams: 02/04/18 10:43 02/02/18 21:41 Labs: Laboratory Results - last 24 hr 02/02/18 02/03/18 02/04/18 21:41 20:52 10:43 Hgb 7.1 L 7.0 L Hct 21.6 L 21.3 L Blood Type A Positive Antibody Screen Negative Crossmatch See Detail Hemoglobin remains low at 7.0. Blood products have been ordered per the internal medicine service. Assessment & Plan Plan: Assessment/Plan Narrative: 72-year-old male admitted with symptomatic anemia and apparent upper gastrointestinal hemorrhage. He is currently hemodynamically stable but remains significantly anemic. Transfusion has been ordered. He remains off anticoagulation therapy which should have been totally reversed by end of today. Plan to proceed with EGD tomorrow morning. Again discussed the technical details with the patient. All questions were answered to his satisfaction, and he voiced understanding. Consent has been placed on the chart. Proceed as above. Quality VTE Deep Vein Thrombosis/Pulmonary Embolism Present on Admission: No
[2018-02-04] MEDS: ACETAMINOPHEN 325 MG TABLET 650 MG PO (18:52)
[2018-02-04] MEDS: HYDROMORPHONE 1 MG INJ 0.5 MG IV (19:51)
[2018-02-04 20:20] LABS: Appearance Urine UA CLEAR; Bacteria Urine None Seen; Bilirubin Urine UA NEGATIVE (NEGATIVE); Color Urine UA YELLOW; Glucose Urine UA NEGATIVE (Normal); Ketones Urine UA NEGATIVE (NEGATIVE); Leukocyte Esterase Urine UA NEGATIVE (NEGATIVE); Nitrite Urine UA Negative (Negative); Occult Blood Urine UA 1+ (Negative); Protein Urine UA NEGATIVE (Negative); RBC Urine None Seen (0-5/HPF); Specific Gravity Urine UA <=1.005 (1.000-1.035); Urobilinogen Urine UA 0.2 E.U./dL (0.2); WBC Urine None Seen (0-5/HPF)
[2018-02-04 21:18] LABS: Hematocrit 23.1 % (41-53); Hemoglobin 7.7 g/dL (13.5-17.5)
--- NOTE | 2018-02-04 21:26 | PC.NURSE ---
KEIKO NOTE received pt refusing to wait for staff assistance for BRP and arguing with staff to have bed alarm turned off. pt unsteady on feet and HR up to 160's with activity, pt also with history of falls and decreased H/H levels. multiple staff members to give pt education on fall risk, including this RN and RN coordinator. pt initially reluctant to cooperate but much more calm now; agreeable to keep alarm off as long as he calls consistently for staff help and waits for assistance. pt with orders to transfuse 2 units PRBCs but no consent form signed. during 1st PRBC transfusion, pt developed a low-grade fever of 100.1, pt asymptomatic and denies chills. Dr. Leija notified, received orders for PO tylenol and to NOT transfuse second unit (will possibly transfuse pt tomorrow). transfusion reaction policy activated- remaining blood unit sent to lab, urine sample sent to lab, and lab dept notified of need for lab draws. pt c/o pain to R jaw, PRN dilaudid given with pt stating experiencing visual hallucinations (seeing bugs crawling on the ground). pt states this occurred last night as well. pt NPO at midnight for scheduled endoscopy tomorrow, pt verbalized understanding. tele monitoring shows Afib CVR. call light within reach.
--- NOTE | 2018-02-04 23:56 | PC.NURSE ---
patient was up OOB at 2300 and unsteady on feet, patient impulsive and doesn't call for assist. Patient and personal belongings moved to room 208 so that staff has a closer eye on him. Bed alarm is on and call light is within reach.
[2018-02-05] VITALS (24 sets, daily range): BP systolic 94–142; BP diastolic 59–95; PULSE 70–109; RESP 9–20; TEMP 36.1–37.1; O2SAT 89–100; BMI 25.6
--- NOTE | 2018-02-05 | PATH_ITS ---
[facility] Accession Number: [id number] . 01 Material submitted: . ANTRAL BIOPSY . 02 Diagnosis: Stomach, Antrum, Biopsy: Antral mucosa with focal mild active inflammation. Negative for Helicobacter by immunohistochemistry. Negative for intestinal metaplasia. Negative for dysplasia and malignancy. V/02/08/2018 . 02 Electronically signed: . Isa William MD, Pathologist NPI- [id number] . 01 Gross description: . ANTRAL BIOPSY: Received in formalin are 2 fragment(s) of rubin, soft tissue measuring 0.3 x 0.3 x 0.1 cm to 0.2 x 0.2 x 0.1 cm submitted entirely in 1 cassette(s) /CKI /CKI . 02 Microscopic: . An immunohistochemical stain was performed to evaluate for Helicobacter organisms and is negative. The control stain showed appropriate reactivity. . * This test was developed and its performance characteristics determined by [facility]. It has not been cleared or approved by the U.S. Food and Drug Administration. The FDA has determined that such clearance or approval is not necessary. This test is used for clinical purposes. It should not be regarded as investigational or for research. . 02 Pathologist provided ICD-10: R10.9 . 02 CPT . 841148, L75987 Performed at: 01 [facility] [address], [place], [place] [id number] MD Daryl Shirley MD Phone: [phone] Performed at: 02 [facility] [place] [address] [place], [place] [id number] MD Bernard Mcarthur MD Phone: [phone]
[2018-02-05] MEDS: HYDROMORPHONE 1 MG INJ IV ×3 (00:46→21:13)
--- NOTE | 2018-02-05 00:50 | PC.NURSE ---
Patient reports pain to jaw at this time 8. the pain just woke me up out a sound sleep. Medicated with prn medication.
--- NOTE | 2018-02-05 02:00 | PC.NURSE ---
Resting quietly with eyes closed. Rec'd Dilaudid 1 mg IV for jaw pain, reports effective. High fall risk, fall precautions in place: patient very impulsive: ongoing teaching Re: fall risk. Bed alarm on and call light within reach....
[2018-02-05] MEDS: SODIUM CHLORIDE 0.9% 1,000 ML 80 ML IV ×2 (05:13→18:12)
[2018-02-05 06:06] LABS: Add Manual Diff / Slide Review NO; Basophils Percent Auto 0.3 % (0-2); Eosinophils Percent Auto 2.2 % (2-4); Hematocrit 21.3 % (41-53); Hemoglobin 7.2 g/dL (13.5-17.5); Lymphocytes Percent Auto 18.1 % (25-40); Mean Corpuscular HGB Conc 33.7 % (30-36); Mean Corpuscular Hemoglobin 28.2 PG (26-34); Mean Corpuscular Volume 83.8 fL (80-100); Monocytes Percent Auto 14.2 % (3-14); Neutrophils Absolute Auto 3600 /uL (3000-5900); Neutrophils Percent Auto 65.2 % (50-75); Platelet Count 100 X10^3/uL (150-400); Red Blood Cell Count 2.54 X10^6/uL (4.5-5.9); Red Cell Distribution Width 14.5 % (11.6-14.8); White Blood Cell Count 5.6 X10^3/uL (4.5-11.0)
[2018-02-05 06:19] LABS: BUN Creatinine Ratio 16.7 (6-22); Blood Urea Nitrogen 15 mg/dL (9-20); Carbon Dioxide 29 mmol/L (22-32); Chloride 106 mmol/L (98-107); Estimated Glomerular Filt Rate > 60.0 mL/min (>60); Glucose 85 mg/dL (80-110); HEMOLYSIS < 15 (0-50); Sodium 141 mmol/L (137-145)
[2018-02-05] MEDS: HYDROMORPHONE 1 MG INJ 0.5 MG IV (07:54)
[2018-02-05] MEDS: PANTOPRAZOLE 40 MG VIAL IV ×2 (07:55→21:12)
[2018-02-05] MEDS: METOPROLOL TARTRATE 5 MG/5 ML INJ 2.5 MG IV (08:44)
[2018-02-05] MEDS: SODIUM CHLORIDE 0.9% 1,000 ML 200 ML IV (10:00)
--- NOTE | 2018-02-05 10:07 | PM.PREOP ---
Pre-operative Note Interval Note Pre-op Check: Yes History & Physical Reviewed by Physician and Yes Exam Performed Changes: No H&P completed within 30 days and has changed as indicated here:: Patient once again seen and examined. History physical examination as well as consultation note from approximately February 02, 2018 remains current and on the chart. No changes. Proceed with EGD today as planned. ASA Class (for procedural sedation): II
--- NOTE | 2018-02-05 10:11 | PC.NURSE ---
Addendum entered by Sussy Varela R.N. 02/05/18 14:26: tsf/pain - pttol oatmeal after procedure, vitals at 2nd set w/tsf are wnl, afebrile, states incr r jaw pain and given 1mg iv dilaudid. Original Note: Addendum entered by Sussy Varela R.N. 02/05/18 13:15: BLOOD/VITALS - the 2nd type and cross does show type a blood and the check from back in 2017 was reviewed as type A, pt continues to state that he has been told as far back as the [employer] that the is 0 neg, but did agree to tsf and the x1 unit was started as previously ordered, sitting upright mela oatmeal, vs stable. Original Note: Addendum entered by Sussy Varela R.N. 02/05/18 10:14: BLOOD TSF - new order transfuse [address]Nara vasquez, he is aware of temp from yesterday, when blood spiked and reviewing blood admin per protocol, pt states I'm O neg, not A, this unit was based on the previous T+C per Reza in blood bank and not from the new order this am he checked and said that the pt is type A; however, as the PACU now showed up early for the edg, I discussed redoing the T&C with the blood drawn this am with the lab and the current unit [id number] was not admin and wasted and pt taken to PACU. Dr. Leija aware an agrees to retype and cross. Original Note: AM NOTE - awake, restless in bed, states pain 8/12, no, 9 1/2 r jaw area, edema noted, states feels like an electric shock, given 1mg iv dilaudid and pt able relax and dose lightly, ra 96%, hr irreg 90, discussed irreg rate up to 120's when up bedside this am with MD and new order rec'd for 2.5mg iv metoprolol, icu notified and monitoring tele, hr irreg 90 prior to admin.
[2018-02-05] MEDS: LIDOCAINE 4% SOLN 50 ML 20 ML TOP (10:28)
[2018-02-05] MEDS: TETRACAINE/BENZOCAINE/BUTAMBEN (CETACAINE) BOTTLE 1 SPRAY TOP (10:30)
[2018-02-05] MEDS: fentaNYL 250 MCG/5 ML INJ IV (10:31)
[2018-02-05] MEDS: MIDAZOLAM 5 MG/5 ML VIAL IV (10:32)
--- NOTE | 2018-02-05 10:32 | PM.OP.ENDO ---
Operative Date/Time/Diagnoses Date of procedure: 02/05/18 Time of procedure: 10:32 Pre-op diagnosis: Upper gastrointestinal hemorrhage Post-op diagnosis: other (Mild gastritis, mild duodenitis, and distal esophagitis) Procedure & Clinicians Study performed: 1. Sedation per surgeon 2. Esophagogastroduodenoscopy with cold forceps biopsy Same procedure as scheduled: Yes Indications: 72-year-old male who presented with symptomatic anemia and melena consistent with upper gastrointestinal hemorrhage. He has had significant recent NSAID use. EGD with potential biopsy was recommended. Surgeon: Charly Aponte Procedure Notes SCOAP/Timeout: Yes Procedure in detail: After obtaining informed consent, the patient was brought to the GI suite and placed in the left lateral decubitus position on the examination table. After placement of appropriate monitors, the patient was given incremental doses of Versed and Fentanyl until an appropriate level of sedation was achieved. A time out was held per SCOAP protocol. A bite block was gently placed between the patient's teeth. The endoscope was lubricated and then passed into the patient's posterior oropharynx. The esophagus was cannulated under direct vision and the scope was passed to the second portion of the duodenum without difficulty. The scope was then withdrawn with careful examination of all areas of the upper GI tract and mucosa. In the stomach, the instrument was retroflexed and the GE junction examined. The scope was straightened and the procedure continued with examination of the remainder of the upper GI tract. Findings are noted above. Air was aspirated from the stomach and the endoscope gently removed from the esophagus. The patient was allowed to awaken from sedation without difficulty and taken to the post-anesthesia care unit in good condition. Scope withdrawal time: Not applicable Sedation minutes: 10 Findings: gastritis, hiatal hernia and other findings (Mild duodenitis and mild distal esophagitis but no ulcers or other abnormalities. No active bleeding.) Specimen(s): other (Antral biopsies) Complications: none Recommendations: No ASA/NSAIDS, Continue medication(s) (Proton pump inhibitor) and Will call with biopsy results Plan for aftercare: 1. Return to surgical floor for ongoing convalescence 2. May restart Xarelto at any time. If bleeding recurs may need colonoscopy. 3. Would recommend screening colonoscopy at some point electively simply as the patient has never had any type of colorectal screening examination. 4. Avoid all NSAIDs. Patient may require alternative pain medication for mandibular pain following recent radiation therapy Follow up: as needed Disposition: PACU
--- NOTE | 2018-02-05 11:06 | SUR.PHASEI ---
assumed care from robyn rn, pt sedated, pain free, needing assit with chin lift initially, 02 n/c placed in mouth, now in nose. arousable follows commands. report called to adalberto.
--- NOTE | 2018-02-05 11:44 | SUR.PHASEI ---
pt delayed out of pacu due to another pt's condition.
--- NOTE | 2018-02-05 11:54 | PC.NURSE ---
Patient arrived back to floor from EGD at 1135. VS stable, 97-99% O2 on 1.5L NC. Patient resting with eyes closed, responds appropriately to touch and verbal commands. Tele leads reattached and box turned on. Right wrist PIV flushed and NS started, per order, at 80ml/hr. Patient denying pain.
--- NOTE | 2018-02-05 12:28 | PM.PN.1 ---
Subjective Date Patient Seen: 02/05/18 Time Patient Seen: 10:28 Interval history: Admitted for where a history of a 1 week of melena started getting a brown stools on the day of admission 1 hr prior to coming to the ER however is feeling very fatigued and tired hemoglobin was down to 8.6 from 11.5 in the recent past last year he also has been complaining of a lot of hip pain in the jaw that he has cut carcinoma treated with radiotherapy he was not given any pain control with narcotics so he took a lot of Naprosyn and ended up having melena patient has been on Xarelto for prevention of stroke and atrial fibrillation has had previous 2 episodes of TIA especially left hand and fingers being affected His Xarelto was being held in the hospital and he had a procedure today upper GI endoscopy that Dr. Velez discussed the findings with me and patient has mainly erosive gastritis and duodenitis and no evidence of ulcers will continue the PPI treatment twice a day and may resume the Xarelto in the next few days Exam Vital Signs (past 8 hours): - 02/05/18 07:59 02/05/18 09:11 02/05/18 09:30 Temperature 98.5 F 98.7 F Pulse Rate 109 H 83 Respiratory Rate 17 16 Blood Pressure 119/79 107/60 Pulse Oximetry 94 96 02/05/18 09:50 02/05/18 09:53 02/05/18 10:38 Temperature 97.2 F L 97.2 F L Pulse Rate 87 87 84 Respiratory Rate 18 18 10 L Blood Pressure 119/75 119/75 108/68 Pulse Oximetry 94 94 89 L 02/05/18 10:43 02/05/18 10:49 02/05/18 11:00 Temperature Pulse Rate 80 78 86 Respiratory Rate 10 L 9 L 10 L Blood Pressure 94/60 113/59 L 102/68 Pulse Oximetry 93 97 95 02/05/18 11:15 02/05/18 11:17 02/05/18 11:30 Temperature 98.1 F Pulse Rate 81 73 71 Respiratory Rate 15 11 L 16 Blood Pressure 110/73 105/59 L 96/64 Pulse Oximetry 100 100 97 02/05/18 11:35 Temperature 97.9 F Pulse Rate 73 Respiratory Rate 16 Blood Pressure 101/64 Pulse Oximetry 98 Oxygen Delivery Method Nasal Cannula Oxygen Flow Rate 1.5 Const General: cooperative, healthy appearing, comfortable and well developed Orientation: alert, awake and oriented x3 HENMT Head: normal to inspection Ears: hearing grossly normal bilaterally Nose: external nose normal Face and sinus: normal facial exam Mouth: oral mucosae normal Eyes General: appearance normal, both eyes and all related structures Eyelids: eyelids normal Conjunctivae: conjunctivae normal Sclera: sclerae normal Pupils: PERRL EOM: EOM intact bilaterally Neck Neck: normal visual inspection, full ROM and No JVD Thyroid: thyroid normal Resp Effort & Inspection: normal respiratory effort, able to speak in complete sentences, no respiratory distress and no use of accessory muscles Auscultation: clear to auscultation bilaterally Cardio Rhythm: abnormal rhythm irregularly irregular Heart Sounds: S1 normal and S2 normal GI Inspection: normal to inspection Palpation: soft and no hepatosplenomegaly Skin General: no rashes or lesions noted Neuro General: alert, awake and oriented x3 Cranial Nerves: CN's II-XI intact bilaterally Cognition: normal cognition Speech: speech normal Motor: muscle tone normal throughout Extrem General: normal to inspection Psych Appearance: grossly normal Speech and Movement: speech and movement normal Mood: congruent mood Affect: normal affect Attitude: cooperative Objective Labs Result Diagrams: 02/05/18 05:45 02/05/18 05:45 Labs: Laboratory Results - last 24 hr 02/02/18 02/04/18 02/04/18 21:41 19:56 21:00 WBC RBC Hgb 7.7 L Hct 23.1 L MCV MCH MCHC RDW Plt Count Neut % (Auto) Lymph % (Auto) [place] % (Auto) Eos % (Auto) Baso % (Auto) Neut # (Auto) Sodium Potassium Chloride Carbon Dioxide BUN Creatinine Estimated GFR BUN/Creatinine Ratio Glucose Calcium Urine Color Yellow Urine Appearance Clear Urine pH 5.0 Ur Specific [place] <=1.005 Urine Protein Negative Urine Glucose (UA) Negative Urine Ketones Negative Urine Occult Blood 1+ H Urine Nitrate Negative Urine Bilirubin Negative Urine Urobilinogen 0.2 Ur Leukocyte Esterase Negative Urine RBC None seen Urine WBC None seen Urine Bacteria None seen Blood Type A Positive Antibody Screen Negative Crossmatch See Detail Transfusion React Rpt Donor Unit # Lab Clerical Err Check Pre-Trans Vis Hemolysis Pre-Trans Antibody Scrn Post-Tx Visible Hemolys Post-Trans Antibody Scrn 02/04/18 02/05/18 02/05/18 21:00 05:45 05:45 WBC 5.6 RBC 2.54 L Hgb 7.2 L Hct 21.3 L MCV 83.8 MCH 28.2 MCHC 33.7 RDW 14.5 Plt Count 100 L Neut % (Auto) 65.2 Lymph % (Auto) 18.1 L [place] % (Auto) 14.2 H Eos % (Auto) 2.2 Baso % (Auto) 0.3 Neut # (Auto) 3600 Sodium 141 Potassium 4.0 Chloride 106 Carbon Dioxide 29 BUN 15 Creatinine 0.90 Estimated GFR > 60.0 BUN/Creatinine Ratio 16.7 Glucose 85 Calcium 8.0 L Urine Color Urine Appearance Urine pH Ur Specific [place] Urine Protein Urine Glucose (UA) Urine Ketones Urine Occult Blood Urine Nitrate Urine Bilirubin Urine Urobilinogen Ur Leukocyte Esterase Urine RBC Urine WBC Urine Bacteria Blood Type Antibody Screen Crossmatch Transfusion React Rpt No discrepancies Donor Unit # [id number] Lab Clerical Err Check No error found Pre-Trans Vis Hemolysis No Pre-Trans Antibody Scrn Not Reportable Post-Tx Visible Hemolys No Post-Trans Antibody Scrn Not Reportable 02/05/18 08:10 WBC RBC Hgb Hct MCV MCH MCHC RDW Plt Count Neut % (Auto) Lymph % (Auto) [place] % (Auto) Eos % (Auto) Baso % (Auto) Neut # (Auto) Sodium Potassium Chloride Carbon Dioxide BUN Creatinine Estimated GFR BUN/Creatinine Ratio Glucose Calcium Urine Color Urine Appearance Urine pH Ur Specific [place] Urine Protein Urine Glucose (UA) Urine Ketones Urine Occult Blood Urine Nitrate Urine Bilirubin Urine Urobilinogen Ur Leukocyte Esterase Urine RBC Urine WBC Urine Bacteria Blood Type A Positive Antibody Screen Negative Crossmatch See Detail Transfusion React Rpt Donor Unit # Lab Clerical Err Check Pre-Trans Vis Hemolysis Pre-Trans Antibody Scrn Post-Tx Visible Hemolys Post-Trans Antibody Scrn Assessment & Plan Plan: Assessment/Plan Narrative: 1. SYNCOPAL EPISODE RESOLVED 2. ACUTE GASTROINTESTINAL BLEEDING WITH MELENA NO FURTHER MELENA THE STOOLS ARE BROWNISH Dr STRANGE General Surgery Discussed with me the EGD findings Of GastroDuodenitis Nil ULCER Recommends Resuming Xarelto and keep on PPI 3. ACUTE SEVERE ANEMIA SECONDARY TO GI BLEED REQUIRING TRANSFUSION HEMOGLOBIN IS DROPPED FROM 11.6 BASELINE LAST YEAR TO 7.2 TODAY had 1 unit transfused yesterday evening will transfuse 1 unit today 4. CHRONIC ATRIAL FIBRILLATION RATE CONTROLLED METOPROLOL IS ON HOLD will resume now since the EGD has been complete 5. XARELTO FOR STROKE PREVENTION IS ON HOLD may be resumed soon Time Spent With Patient Time with patient: 25 - 35 minutes Quality VTE Deep Vein Thrombosis/Pulmonary Embolism Present on Admission: No
[2018-02-05] MEDS: METOPROLOL ER 50 MG TABLET PO (13:10)
[2018-02-05] MEDS: RIVAROXABAN 10 MG TABLET 15 MG PO (13:10)
--- NOTE | 2018-02-05 16:20 | PC.NURSE ---
Tiffany shift note: Patient awake, alert and cooperative. Daughter at bedside providing supportive care. PRBC transfusion ended, patient remain afebrile with stable VS. No s/sx of transfusion reaction.
[2018-02-06 00:15] VITALS: O2SAT 96
[2018-02-06 00:40] VITALS: O2SAT 96
[2018-02-06] MEDS: HYDROMORPHONE 1 MG INJ 0.5 MG IV (02:46)
[2018-02-06 03:58] VITALS: BP 130/80; PULSE 94; RESP 18; TEMP 37.6; O2SAT 93
[2018-02-06] MEDS: ACETAMINOPHEN 325 MG TABLET 650 MG PO (06:05)
[2018-02-06] MEDS: CALCIUM CARBONATE 500 MG TAB 1000 MG PO (06:06)
--- NOTE | 2018-02-06 06:19 | PC.NURSE ---
Assumed care of pt from outgoing shift at 2300 8-27. Pt awake. uses call light. stands at bedside to use urinal. voids about 100-150cc at a time. is drinking water, fluids restarted. 80cc.hr per order. Pt tolerating. Pt bed alarm on. side rails up x2. belongings and call light within reach. Pt medicated. 0615- pt asking for pain meds and given tylenol. Pt also given snack with, pt asking to go on walk and will try to get him walking. Pt complained of arthritic pain to arms and he stated his muscled are crampy all over. including chest, pt vitals stable. Pt denied dizziness sob. Pt given tums and he states he also feels bloated and just all around not good. will continue to monitor. pt bed alarm on.
[2018-02-06 07:02] LABS: Add Manual Diff / Slide Review NO; Basophils Percent Auto 0.2 % (0-2); Eosinophils Percent Auto 1.9 % (2-4); Hematocrit 25.8 % (41-53); Hemoglobin 8.8 g/dL (13.5-17.5); Lymphocytes Percent Auto 16.8 % (25-40); Mean Corpuscular HGB Conc 33.9 % (30-36); Mean Corpuscular Hemoglobin 28.2 PG (26-34); Mean Corpuscular Volume 83.2 fL (80-100); Monocytes Percent Auto 13.1 % (3-14); Neutrophils Absolute Auto 4900 /uL (3000-5900); Platelet Count 104 X10^3/uL (150-400); Red Cell Distribution Width 14.6 % (11.6-14.8); White Blood Cell Count 7.1 X10^3/uL (4.5-11.0)
[2018-02-06 07:13] LABS: BUN Creatinine Ratio 16.3 (6-22); Blood Urea Nitrogen 13 mg/dL (9-20); Calcium 8.4 mg/dL (8.4-10.2); Carbon Dioxide 26 mmol/L (22-32); Chloride 105 mmol/L (98-107); Estimated Glomerular Filt Rate > 60.0 mL/min (>60); Glucose 94 mg/dL (80-110); HEMOLYSIS < 15 (0-50); Potassium 3.9 mmol/L (3.4-5.1); Sodium 140 mmol/L (137-145)
[2018-02-06 07:50] VITALS: BP 129/69; PULSE 93; RESP 19; TEMP 36.6; O2SAT 97
[2018-02-06] MEDS: RIVAROXABAN 10 MG TABLET 15 MG PO (08:50)
[2018-02-06] MEDS: METOPROLOL ER 50 MG TABLET PO (08:50)
[2018-02-06] MEDS: PANTOPRAZOLE 40 MG VIAL IV (08:50)
[2018-02-06 11:34] VITALS: O2SAT 95
--- NOTE | 2018-02-06 11:37 | PC.NURSE ---
Addendum entered by Sussy Varela R.N. 02/06/18 14:48: CARDIAC - reviewed ekg, trop neg, script for oxycodone placed in chart, discussed dc with pt and he will notify dtr. Original Note: Addendum entered by Sussy Varela R.N. 02/06/18 13:12: DC/CHEST PAIN - had been in and pt to dc home, pt req pain medication for r jaw, then mentions maybe it will help this chest pain and points to mid chest area, he states it has been ongoing since yesterday but feels worse now, spoke to who is ordering a stat ekg and cardiac enzymes. Original Note: AM NOTE - up to chair for breakfast, complaint incr edema r cheek, jaw area and reports some drainage from scabbed wound r cheek, no active drainage now noted, provided ice pack, declines pain medication and states will ask when needed, discussed constipation and narcotics, given prune juice this am, up ambul room and hallway w/fww, dtr standby, denies dizziness.
[2018-02-06 11:45] VITALS: BP 133/76; PULSE 95; RESP 17; TEMP 36.7; O2SAT 97
[2018-02-06] MEDS: HYDROMORPHONE 1 MG INJ IV (12:38)
[2018-02-06 14:07] LABS: Creatine Kinase 230 U/L (55-170)
[2018-02-06 14:22] LABS: Creatine Kinase MB 2.26 ng/mL (<2.37)
[2018-02-06 14:29] LABS: Troponin I < 0.012 ng/mL (0.01-0.034)
--- NOTE | 2018-02-06 14:56 | P.DS_ITS ---
History of Present Illness Date Patient Seen: 02/06/18 Chief complaint: Syncope Narrative: his very pleasant gentleman was admitted following up passing out [place] he had been having melena for about a week or so And yesterday he passed out and was brought to the ER somewhat up to 100 and hypoxic which she recovered during [place] the [place] to the ER Diagnosis is the stools are brown and not black anymore HIS USUAL HEMOGLOBINS HAVE BEEN AROUND 11.5 DURING LAST YEAR AND WAS 8.3 YESTERDAY AND 7.6 TODAY HE went to see his primary care physician for progressive fatigue but a month ago and metoprolol was stopped but the patient received it because he did feel any different without it He is on Xarelto for chronic atrial fibrillation prevention of stroke is at previous history of CVA DOES NOT COMPLAIN OF ANY ABDOMINAL PAIN HAS THE RIGHT JAW PAIN THAT HE HAS SQUAMOUS CELL CARCINOMA Discharge Providers Date of admission: 02/02/18 23:16 Primary care physician: Kanu Avila MD Consults: 02/03/18 08:45 Consult to General Surgery Routine Comment: Consulting Provider: Charly Aponte Reason for consultation: GI Bleed Discharge provider: Mary Lorenzo MD Summary Discharge Diagnosis: Upper GI Bleed secondary to gastritis Blood loss anemia Syncope secondary to anemia Atrial Fibrillation Squamous carcinoma of the mandible Skin Cancer Hospital Course: Patient admitted to the hospital for evaluation of Upper GI Bleeding. He recieved a transfusion and underwent EGD. EGD confirmed gastritis The patient was treated with protonix and had no further bleeding. On the day of discharge he had some chest pain, his EKG was significant for Atrial Fibrillation ( old) His troponins were negative. He also had drainage fromt he right cheek. Patient was asked to follow up with his ENT physician for further evaluation. Patient was deemed appropriate for discharge home. Status at Discharge Cognitive/behavioral status at discharge: at baseline Functional status at discharge: independent ambulation Overall status at discharge: patient is back to baseline Time Spent with Patient Less than 30 minutes Exam Vital Signs (past 8 hours): - 02/06/18 07:50 02/06/18 11:34 02/06/18 11:45 Temperature 97.9 F 98.1 F Pulse Rate 93 H 95 H Respiratory Rate 19 17 Blood Pressure 129/69 H 133/76 H Pulse Oximetry 97 95 97 Oxygen Delivery Method Room Air Oxygen Flow Rate 0 Narrative Exam Narrative: Right Face Cheek: firm mass palpated with whiteish discharge expressed Lungs: clear to ausculatation CV: RRR nl Sl S2 Abd: Soft/ non tender non distended Ext: no edema Objective Labs Result Diagrams: 02/06/18 06:48 02/06/18 06:48 Labs: Laboratory Results - last 24 hr 02/02/18 02/04/18 02/05/18 21:41 21:00 08:10 WBC RBC Hgb Hct MCV MCH MCHC RDW Plt Count Neut % (Auto) Lymph % (Auto) [place] % (Auto) Eos % (Auto) Baso % (Auto) Neut # (Auto) Sodium Potassium Chloride Carbon Dioxide BUN Creatinine Estimated GFR BUN/Creatinine Ratio Glucose Calcium Total Creatine Kinase CK-MB (CK-2) CK-MB (CK-2) Rel Index Troponin I Blood Type A Positive Antibody Screen Negative Crossmatch See Detail See Detail Reaction Path Interpret 02/06/18 02/06/18 02/06/18 06:48 06:48 13:48 WBC 7.1 RBC 3.10 L Hgb 8.8 L Hct 25.8 L MCV 83.2 MCH 28.2 MCHC 33.9 RDW 14.6 Plt Count 104 L Neut % (Auto) 68.0 Lymph % (Auto) 16.8 L [place] % (Auto) 13.1 Eos % (Auto) 1.9 L Baso % (Auto) 0.2 Neut # (Auto) 4900 Sodium 140 Potassium 3.9 Chloride 105 Carbon Dioxide 26 BUN 13 Creatinine 0.80 Estimated GFR > 60.0 BUN/Creatinine Ratio 16.3 Glucose 94 Calcium 8.4 Total Creatine Kinase 230 H CK-MB (CK-2) 2.26 CK-MB (CK-2) Rel Index 1.0 L Troponin I < 0.012 Blood Type Antibody Screen Crossmatch Reaction Path Interpret Discharge Plan Discharge Plan Patient Disposition: Home Discharge comment: Patient needs to follow up with ENT regarding drainage from the right cheek. This is likely necrotic ulceration of his malignancy. He is referred back to the original surgeon, Dr. Sumner. However patient refuses to see him and will find another ENT MD in [place]. Provider Discharge Instructions Diet: Diet as Tolerated Activity: as tolerated Skin/Wound/Dressing Care Skin care: Needs ENT follow up Discharge Data Primary Care Provider: Kanu Avila Attending Provider: Kwaku Mclaughlin Admit Date/Time: 02/02/18 23:16 Quality VTE Deep Vein Thrombosis/Pulmonary Embolism Present on Admission: No
--- NOTE | 2018-02-06 15:03 | CM.DPC ---
Addendum entered by Zoraida Alonso R.N. 02/06/18 15:22: Had patient sign updated IMM before discharge Original Note: DCP Cont: Spoke to patient today, pleasant, alert and oriented. Asked patient if he needed any resources upon discharge, and if he felt comfortable going home, for he lives near son and grandchildren. Patient is to be discharged home today. Will be following up at pain clinic in [facility], as well. P: Discharged home today. Zoraida Alonso RN/Process Treater
== END 2018-02-06 16:15 | disposition home or self-care (01) | DRG 378 ==
LOC: ED 23:12 → AC 23:17 → ICU 02-03 00:54 → AC 02-04 10:04
PROVIDERS: Internal Medicine; Surgery; Admitting Provider Internal Medicine; Emergency Provider Emergency Medicine; Family Provider Family Medicine; PCP Family Medicine; Visit Provider Internal Medicine
PROC: 0DJ08ZZ Inspection of Upper Intestinal Tract, Via Natural or Artificial Opening Endoscopic (ICD-10-PCS; CPT 43235; principal; 2018-02-05 10:15)
DX: K92.1 Melena (principal); D62 Acute posthemorrhagic anemia; C41.1 Malignant neoplasm of mandible; I48.2 Chronic atrial fibrillation; Z79.01 Long term (current) use of anticoagulants; R68.84 Jaw pain; R55 Syncope and collapse; Z86.73 Personal history of transient ischemic attack (TIA), and cerebral infarction without residual deficits; N40.0 Benign prostatic hyperplasia without lower urinary tract symptoms; K21.9 Gastro-esophageal reflux disease without esophagitis; F32.9 Major depressive disorder, single episode, unspecified; E78.5 Hyperlipidemia, unspecified; F17.210 Nicotine dependence, cigarettes, uncomplicated; F12.90 Cannabis use, unspecified, uncomplicated; K29.70 Gastritis, unspecified, without bleeding; K29.80 Duodenitis without bleeding; K20.9 Esophagitis, unspecified; K44.9 Diaphragmatic hernia without obstruction or gangrene
CPT/HCPCS: 36415; 36430; 43239; 80048; 80053; 81001; 82550; 82553; 82962; 83540; 83550; 84484; 85014; 85018; 85025; 86078; 86850; 86900; 86901; 87797; 88305; 88342; 93005; 93010; 99152; 99222; 99231; 99283; 99406; P9016; C9113; J1170; J2250; J2405; J3010

== ENCOUNTER 2018-03-15 12:35 | Day surgery (SDC) | payer MEDICARE, SELFPAY ==
[2018-02-03 00:50] VITALS: BMI 24.9
[2018-03-15 13:16] VITALS: BP 136/78; PULSE 92; RESP 16; TEMP 36; BMI 16.6
[2018-03-15] MEDS: LACTATED RINGERS 1,000 ML 100 ML IV (13:42)
--- NOTE | 2018-03-15 15:00 | PM.PREOP ---
Pre-operative Note Interval Note Pre-op Check: Yes History & Physical Reviewed by Physician and Yes Exam Performed Changes: Yes H&P completed within 30 days and has changed as indicated here:: Patient missed his prior appointment due to him developing explosive diarrhea which is now resolved. He would like to be put to sleep but I explained to him that that is not safe as his mouth does not open adequately. We will sedate him a however.
[2018-03-15] MEDS: CEFAZOLIN 2 GM/100 ML FROZ.PIGGY IV (15:29)
--- NOTE | 2018-03-15 15:30 | DI.RAD.S_ITS ---
PROCEDURE: XR CHEST 1V INDICATIONS: PORT A CATH TECHNIQUE: One view of the chest was acquired. COMPARISON: [facility], , CHEST 1 VIEW, 06/26/2017, 13:13. FINDINGS: Surgical changes and devices: Left-sided della catheter, tip of which projects over the upper SVC. Lungs and pleura: No pleural effusions or pneumothorax. Lungs are clear. Mediastinum: Mediastinal contours appear normal. Heart size is normal. Bones and chest wall: No suspicious bony lesions. Overlying soft tissues appear unremarkable. IMPRESSION: 1. Tip of left della catheter projects over the upper SVC on this single view. Dictated by: Jere Reynolds M.D. on 03/15/2018 at 16:36 Approved by: Jere Reynolds M.D. on 03/15/2018 at 16:37
--- NOTE | 2018-03-15 15:48 | SUR.OPER ---
Supine on padded OR bed, head on pillow, left arm padded and tucked at side,right arm on padded armboarb at <90degrees legs uncrossed, safety belt at thigh, tape over blanket over lower legs .
[2018-03-15] MEDS: LIDOCAINE 1% 20 ML INJ INJ (15:56)
[2018-03-15] MEDS: HEPARIN 5,000 UNIT, SODIUM CHLORIDE 0.9% 50 ML IV (15:57)
[2018-03-15 16:15] VITALS: BP 103/67; PULSE 99; RESP 16; O2SAT 98
--- NOTE | 2018-03-15 16:15 | PM.OP.1 ---
Operative Date/Time/Diagnoses Date of procedure: 03/15/18 Time of procedure: 16:15 Pre-op diagnosis: Cancer involving his jaw Post-op diagnosis: same Procedure & Clinicians Procedure: Placement of a left subclavian Port-A-Cath Same procedure as scheduled: Yes Indications: Gentleman in need of IV access for chemotherapy Surgeon: Rubens Ho Click Yes if Unassisted: Yes Anesthesia Type: MAC +/- Operative Notes Findings: Tip appeared to be in the SVC. No evidence of a pneumothorax. Closure Type: primary Specimen(s): none sent Implants & Drains: Slim Port-A-Cath Estimated Blood Loss (mL): 10 Blood products transfused: none Procedure in detail: The patient was placed supine on the operating room table and underwent monitored anesthesia care. A roll was placed between his shoulders. He was prepped and draped in usual fashion. Local anesthetic was infiltrated in a field block fashion beneath the left clavicle. A transverse incision was made and a needle inserted into the subclavian vein. Guidewire was passed in and the needle removed. A pocket was created beneath the left clavicle. The catheter was put together with the port and taper to appropriate length. The port was placed in the pocket and the patient had a dilator introducer passed over the guidewire using fluoroscopy to visualize it. The guidewire and the dilator removed leaving the introducer in place. The catheter was passed through it and the introducer peeled away leaving the catheter in place. The port was secured to the chest wall and the port was aspirated and flushed with heparinized saline. The subcu was closed with interrupted 3 0 Polysorb and skin was closed with a a running for Polysorb subcuticular stitch and Steri-Strips. Dressing was applied the patient taken recovery room no apparent problems. Complications: none Condition: stable Disposition: PACU Plan for aftercare: Follow-up in our office
[2018-03-15 16:20] VITALS: BP 116/60; PULSE 99; RESP 12; O2SAT 99
[2018-03-15 16:35] VITALS: BP 126/78; BP 93/60; PULSE 91; PULSE 92; RESP 10; RESP 14; TEMP 36.7; O2SAT 98; O2SAT 99
--- NOTE | 2018-03-15 16:46 | SUR.PHASEI ---
stable pacu stay. xray verified by dr ravi, to opd stable
[2018-03-15 17:01] VITALS: BP 134/80; PULSE 88; RESP 14; TEMP 36.6; O2SAT 98
--- NOTE | 2018-03-15 17:15 | SUR.PHASEII ---
D/C INSTRUCTIONS DISCUSSED, DRESSING REMAINED C/D/I. VSS. EATING JELLO DAUGHTER CALLED AWAITING DIRECTOR INTERNAL CONTROL. VERIFIED FROM DAUGHTER, PT HAS OXYCODONE PILS AT HOME.
[2018-03-15 17:45] VITALS: BP 131/69; PULSE 81; RESP 16; TEMP 36.7; O2SAT 97
--- NOTE | 2018-03-15 21:31 | SUR.PHASEII ---
1800: daughter arrived, d/c instructions discussed, pt ready to go dressing remained c/d/i. pt left in stable condition.
== END 2018-03-15 18:00 | disposition home or self-care (01) ==
PROVIDERS: PCP Family Medicine; Visit Provider Specialist
PROC: (CPT 36561; principal; 2018-03-15 14:15)
DX: C41.1 Malignant neoplasm of mandible (principal); Z45.2 Encounter for adjustment and management of vascular access device; F17.210 Nicotine dependence, cigarettes, uncomplicated; I48.91 Unspecified atrial fibrillation; I69.352 Hemiplegia and hemiparesis following cerebral infarction affecting left dominant side
CPT/HCPCS: 36561; 71045; 76000; C1788; J0690; J1644; J2704; J3010

== ENCOUNTER → 2018-05-30 09:30 | Oncology outpatient (ONC) | payer OTHER, MEDICARE, SELFPAY ==
[2018-02-03 00:50] VITALS: BMI 24.9
--- NOTE | 2018-02-21 13:41 | ONC.SCHED ---
INS IN CHOICE-PT IS AWARE THAT THIS VISIT MAY NEED TO BE BILLED TO HIS MCR. I SPOKE WITH PT AND SUGGESTED HE CALL IN CHOICE TO START THAT AUTHORIZATION PROCESS AND THEY WE HAVE HAD SEVERAL PATIENTS BE QUITE SUCCESSFUL IN THAT. I TOLD HIM THAT IF HE NEEDED HELP TO CALL BACK AND I WOULD SEE WHAT I COULD DO. HE WAS AGREEABLE.
[2018-02-27 09:59] VITALS: BP 100/73; PULSE 110; RESP 22; TEMP 36.9; O2SAT 96
--- NOTE | 2018-02-27 10:30 | ONC.NAV ---
Description: New Pt Intro Activity: Met with pt prior to his initial consult visit with Dr. Zamora. Pt presents as anxious, yet cooperative and pleasant. He indicated a (7) on his distress screening, expressing sadness and transportation concerns. He has recently moved in with his daughter, who lives just a few blocks from the hospital, is still driving and independent with most ADL's. He denied needing assistance with transportation, however he shared that his brother of cancer 2-years ago, and his mother 2-years before that, and that he's not ready to be on hospice, it's a scary word, hospice, it means you're dying. ASSISTANT TECHNICIAN provided information and reassurance re: resources at end of life, and cleared up some of the myths about hospice that were scary for him. He states that he knows that there is no further treatments for him, that he's had 2-strokes and is not a candidate for further surgery. ASSISTANT TECHNICIAN focused on supportive listening and building a trusting rapport. He feels that he has very good support through his daughter, who takes care of most of his living/in-home needs. No immediate needs were identified at this time. Plan: Provided my services card, and made a plan to check in with him again once he has established a treatment plan with the provider and returns for continued appointments.
--- NOTE | 2018-02-27 10:45 | ONC.CONS ---
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 About a year ago, the patient developed a mass on his jaw and mandible. He had a biopsy that demonstrated squamous cell carcinoma. He was evaluated by Dr. Deny Sumner who performed an incisional biopsy. The tumor extended into the mandible and could not be resected completely. His staging evaluation did not show any evidence of distant metastasis. He was referred to [place] for possible resection including reconstruction of the jaw. The patient instead preferred to pursue radiation therapy and declined concurrent chemotherapy. He had initial decrease in the size of his mass. His treatment was complicated by some loss of taste and dry mouth. He did not have any other significant toxicity. Recently, the lesion in his mandible has been increasing in size. He is having some pain in the jaw and has had some foul-smelling serous drainage as well. His weight has been stable. He has had some hoarseness in his voice. He denies any difficulty swallowing. He is having some increasing trouble opening his mouth which he describes as ?locked jaw? he denies any shortness of breath cough for chest pain. Strength and energy level have been low. He has been using occasional hydrocodone for his jaw pain. He takes 1 at bedtime and 1 later in the evening. He reports that this gives fairly good relief of the pain. He was recently hospitalized with an episode of GI bleeding. He did require transfusion but has not noted any further bleeding since his hospital discharge. He had been on Xarelto for atrial fibrillation this was held temporarily but he has since restarted. The patient is very matter of fact in in that his tumor cannot be cured but is interested in therapies that might potentially prolong his survival and maintain his quality of life. His past medical history is notable for atrial fibrillation and prior stroke. He has had a history of multiple skin cancers involving his arm lip and year. He has a history of hyperlipidemia His medications include atorvastatin Xarelto and hydrocodone. Social history: He lives with his daughter and son-in-law. He does continue to smoke but does not drink any alcohol. He previously worked in [employer] and also at the [employer]. Family history is notable for brother who recently from cancer. CC: Laazro Zamora MD Patient reports pain?: Yes - Pain Details Pain Frequency: Intermittent Pain Description: Sharp, Shooting Pain referral/management: Self-management Home Medications and Allergies Home Medications Medication Instructions Recorded Confirmed Type pantoprazole 40 mg PO 0600,2100 #58 tab 05/03/17 02/22/18 Rx metoprolol succinate [Toprol XL] 100 mg PO QDAY #30 tab 09/28/17 02/22/18 Rx atorvastatin 40 mg PO HS #90 tab 09/29/17 02/22/18 Rx rivaroxaban 15 mg tablet 15 mg PO QDAY #30 tab 01/23/18 02/22/18 Rx oxycodone 10 mg tablet 10 mg PO Q4-6H PRN #120 tab 02/22/18 Rx Allergies Allergy/AdvReac Type Severity Reaction Status Date / Time No Known Drug Allergies Allergy Verified 02/22/18 12:05 Medical History - Medical, Surgical, Family History Medical History: Medical History (Last Reviewed 02/25/18 @ 15:10 by Kanu Avila MD) Cellulitis of right orbital region (Resolved) Altered mental status (Resolved) Stroke (Resolved) Intraparenchymal hemorrhage of brain (Resolved) TIA (transient ischemic attack) (Resolved) Rectal bleed (Suspected) Influenza A (Resolved) Weakness (Chronic) Benign prostatic hyperplasia (Chronic) Onset Date: 09/01/15 Depression (Chronic) Onset Date: 09/01/15 History of malignant neoplasm of skin (Chronic) Onset Date: 09/01/15 Chronic atrial fibrillation (Chronic) Onset Date: 09/29/15 Gastroesophageal reflux disease (Chronic) Onset Date: 06/23/16 Fracture of corpus cavernosum penis, initial encounter (Chronic) Onset Date: 06/23/16 Chronic fatigue (Chronic) Onset Date: 06/23/16 Hyperlipidemia (Chronic) Squamous cell cancer of skin of jawline (Chronic) Onset Date: 02/24/17 Status post stroke (Chronic) Onset Date: 02/24/17 Other specified transient cerebral ischemias (Chronic) Onset Date: 03/22/17 Sore throat (Resolved) Onset Date: 03/22/17 Squamous cell carcinoma of mandible (Chronic) Onset Date: 05/10/17 History of upper gastrointestinal hemorrhage (Chronic) Onset Date: 05/10/17 Late effect of cerebrovascular accident (CVA) (Chronic) Onset Date: 05/10/17 Atrial fibrillation CVA (cerebral vascular accident) HTN (hypertension) Hypertension Onset Date: Unknown Actinic keratosis Onset Date: Unknown Basal cell carcinoma Onset Date: 2012 Chickenpox Measles Mumps Skin cancer Onset Date: 2012 Surgical History: Surgical History (Last Reviewed 02/25/18 @ 15:11 by Kanu Avila MD) History of facial surgery (Chronic) S/P skin and subcutaneous tissue surgery (Chronic) Family History: Family History (Last Reviewed 02/25/18 @ 15:10 by Kanu Avila MD) Mother Age: 96 Heart trouble Pacemaker Father Heart trouble - Social History Smoking Status: Current every day smoker Review of Systems - Patient Self-Reported Symptoms SR Constitution: Fatigue/Malaise SR eye issues: Vision changes SR ears, nose, mouth, throat issues: Ears ringing, Cough, Mouth sores, Changes in taste SR respiratory issues: Cough, Shortness of breath, Mucous SR Cardiovascular issues: Dizzy/lightheaded SR Skin issues: Skin rash or itching SR Gastrointestinal issues: Poor or no appetite, Heartburn SR Genitourinary issues: Frequent urination SR Musculoskeletal issues: Muscle weakness, Muscle pain or cramps, Cold hands or feet, Difficulty walking SR Neuro issues: Lightheaded/dizzy, Difficulty balancing SR Endocrine issues: Excessive urination Exam Vital signs: Last Vital Signs Temp 98.5 F 02/27/18 09:59 Pulse 110 H 02/27/18 09:59 Resp 22 02/27/18 09:59 BP 100/73 02/27/18 09:59 Pulse Ox 96 02/27/18 09:59 - Constitutional positive no acute distress, positive average body habitus - Routine HEENT Exam Head: Present: normocephalic, atraumatic Eye: Present: EOMI, PERRL. Absent: conjunctival icterus, scleral injection ENT: Present: mucous membranes moist, oropharynx clear Comments: He is only able to open his mouth between 1 and 2 finger breaths. There are no obvious lesions in the mouth. He has surgical changes to the right ear. I has a mass on a mandible on the right side it is about 2-1/2 to 3 cm in size and tender to palpation. There is no overlying erythema. - Routine Neck Exam Present: supple. Absent: lymphadenopathy, thyromegaly - Routine Respiratory Exam Present: Clear to auscultation bilaterally. Absent: rales, wheezes - Routine Cardiovascular Exam Present: murmur, irregularly irregular Comments: He has 2/6 systolic murmur. - Routine Abdominal Exam Present: soft, normoactive bowel sounds. Absent: distended, organomegaly, mass - Routine Extremities Exam Absent: cyanosis, clubbing, edema - Routine Back/Spine Exam Back/Spine: Absent: paraspinal tenderness, vertebral tenderness - Routine Skin Exam Absent: intact, petechiae, rash - Routine Neurological Exam Present: alert, oriented X3 - Routine Psychiatric Exam Present: normal affect, normal thought process Results - Imaging Additional studies: Procedures Excision of Duodenum, Via Natural or Artificial Opening Endoscopic, Diagnostic (05/01/17) Excision of Stomach, Pylorus, Via Natural or Artificial Opening Endoscopic, Diagnostic (02/02/18) Transfusion of Nonautologous Red Blood Cells into Peripheral Vein, Percutaneous Approach (02/02/18) Venous catheterization, not elsewhere classified (08/07/11) Assessment and Plan (1) 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 He does not have any definite evidence of distant metastasis but does have clear progression by CT scan. He is not willing to consider surgical resection of the mass as it would require removal of the mandible and reconstruction. I doubt that he would get significant benefit from an attempt at re-radiation. We did discuss the possibility of chemotherapy. Single agent such as cisplatin or carboplatin, taxanes or Erbitux could be considered. Response rates would be generally in the order of about 30% or so for first-line therapy. Another 30% or so of patients would have stable disease. Side effects of treatment including alopecia nausea vomiting myelosuppression risk for infection risk for neuropathy and allergic reactions reviewed. In general, would expect reasonable response rate, and potentially improvement in his survival. Not tolerate first-line therapy, immunotherapy line treatment. The patient was willing to proceed with treatment and felt like he would be doing something to fight his cancer although he does realize that it would not be curative. I will plan on having a Port-A-Cath placed and begin treatment with single agent carboplatin as soon as can be practically arranged. He will return to clinic in about 3 weeks or so for follow-up. Current visit: No Status: Chronic
--- NOTE | 2018-02-27 11:27 | ONC.SCHED ---
carboplatin 02/27/2018 mcr ok
--- NOTE | 2018-03-01 12:54 | ONC.SCHED ---
MIRE[place] [id number] [facility] 02/27/18
--- NOTE | 2018-03-05 11:11 | ONC.NAV ---
Description: T/C-Ins[place]age/[place] [facility] Activity: Called [place] [employer] to clarify if patient already has a pending authorization to be seen here at [facility]. He has Medicare as primary, and is set to begin chemotherapy next week. This DATABASE PROGRAMMER found out from [place] [employer] what number to call, and what he needed to tell them, in order to get an authorization going, otherwise he is potentially facing having more out of pocket than would be necessary if he didn't have the [facility] picking up what Medicare doesn't cover. He expressed understanding of this information, and stated that he will f/u today with calling them. No further needs were identified at this time.
--- NOTE | 2018-03-05 15:37 | ONC.NAV ---
Description: [facility] request for Auth Activity: Called Dr. Avila's office and requested that they call [facility] and request an authorization for [facility]. They will call me back to confirm that this has been done.
--- NOTE | 2018-03-08 12:57 | ONC.NAV ---
Description: T/C Activity: Called pt to discuss setting up a time to meet and call the [facility] together, in order to opt-in to his [facility] [employer] coverage. Made a plan to meet on Monday, 03/13 after his chemo teaching.
--- NOTE | 2018-03-12 09:06 | P.CHEMO_ITS ---
Chemotherapy Counseling - History of present illness History of present illness: The patient is a 72-year-old male being seen in the clinic today for chemotherapy teaching. Patient has recently confirmed recurrent squamous cell carcinoma involving the mandible. Patient has had previous radiation therapy, treatment was complicated by loss of taste and dry mouth. Unfortunately this mass has been increasing in size. Patient met with oncologist Dr. Zamora and plan is to move forward with chemotherapy in the form of carboplatin every 21 days. - General New Chemotherapy Patient: Yes Treatment Plan Reviewed: yes. Carboplati - Chemotherapy Counseling Chemotherapy Counseling: Chemotherapy Education: Sudhir Pond provided written information on all topics discussed. Written materials printed from www.chem[employer]are.[employer] and www.[employer].org. Sudhir was given an overview of cancer and mechanism of action of cancer cells , that cancer is caused by cells that are dividing rapidly, and out of control. Traditional chemotherapy works by targeting the fast dividing cells and killing them. Chemotherapy affecting healthy cells dividing quickly causes many of the side effects (hair follicles, bone marrow, mucus membranes). Overview of blood cell functions of white cells to fight infection, red cells to carry oxygen, and platelets to stop bleeding was discussed, and that when bone marrow is affected by chemo, there is a decrease in production of these cells. Home care of the patient following chemotherapy was discussed. Body fluids will be contaminated for 48 hours following treatment, and any body fluids handled by caregivers should be handled wearing gloves, surfaces need to be cleaned with soap and water, any soiled linens or clothing need to be washed separately in hot water, toilet lid should be closed when flushing, person cleaning the toilet should wear gloves. How chemotherapy is administered by the RN?s in the clinic, that orders are double checked by pharmacy and checked again by two RN?s prior to administration. Nurses wear protective gear to prevent exposure to them of the chemotherapy agents which can also cause cancer. Cancer center information discussed and written hand out provided listing on- call oncologist available weekends and after hours triage R.N. hours and infusion room guide. New patient binder given to Sudhir, which includes clinic names, phone numbers , clinic information, calendar, cancer glossary, and list of resources. Handout on advanced directives Common side effects of chemotherapy were discussed with self care tips for prevention of complications. Information also provided in writing. These included: Low blood counts (anemia, thrombocytopenia, neutropenia) Hair loss (alopecia) Nausea and vomiting Decreased appetite Loss of fertility Diarrhea Mouth sores Constipation Peripheral neuropathy Chemo brain/cognitive changes Fatigue Instructions on when to call your healthcare team or on-call physician immediately: Fever of 100.4 or higher, chills, any signs of infection Shortness of breath, wheezing, difficulty breathing, closing of throat, swelling of face, hives (signs of possible allergic reaction) Chest pain, fast heart beat or feelings of a different heart rhythm Swelling of an extremity with or without pain signs of stroke Instructions on when to call your healthcare team within the next 24 hours Nausea that interferes with ability to eat and unrelieved with prescribed medication Diarrhea (4-6 episodes in 24 hour period). Unusual bleeding or bruising Black or tarry stools, or blood in your stools Blood in the urine pain or burning with urination Extreme fatigue (unable to perform self-care activities) Mouth sores or sore areas in your mouth Bad headache Dizziness or lightheadedness Large weight gain over a short period of time General self-care tips while undergoing treatment discussed were as follows. Written materials were provided covering in detail and additional self care tips. Drink at least 2-3 quarts (8-10 glasses) of no-caffeinated beverages daily unless you are instructed otherwise and empty your bladder frequently Report any concerning symptoms to your healthcare team Avoid crowds and sick people, wash your hands frequently Use a soft bristled toothbrush, rinse three times a day with 1 tsp baking soda or 1 tsp salt mixed with warm water Avoid any mouthwashes or oral and skin products containing alcohol or fragrances Use electric razors to avoid cutting yourself Avoid contact sports or activities that could cause head injury or bleeding Avoid sun exposure, wear SPF 15 or higher, wear protective clothing Get plenty of rest, meter your activities Maintain good nutrition Avoid alcoholic beverages Attend your scheduled appointments and lab draws Treatment regimen reviewed and medications were discussed with attention to specific side effects and self care for the pt?s treatment regimen which includes [carboplatin]. Sudhir was provided with literature regarding [ carboplatin] and common side effects. Additionally, Sudhir was provided with literature regarding the diagnosis of squamos cell carcinoma]. Sudhir instructed to read literature at home. Keep a list of questions which we are happy to go over at future visits. For any urgent questions please feel free to call any time. - Referrals Referrals: Access Analyst (SENIOR DATA WAREHOUSE DEVELOPER re: financial concerns)
--- NOTE | 2018-03-19 15:11 | ONC.NAV ---
Description: T/C-[place] [employer]/status of request to reinstate Activity: Left a message for Korin inquiring about the status of pt's request to have his [place] Choice approved, and authorization provided, in order to utilize this benefit for Oncology treatment. Requested a return call to update on status.
[2018-03-20 08:56] VITALS: BP 134/75; PULSE 100; RESP 18; TEMP 36.6
--- NOTE | 2018-03-20 09:18 | P.PNONC_ITS ---
PN -Subjective Interval history: Diagnosis: Squamous cell carcinoma involving the mandible Previous treatment: 1. Radiation therapy finishing July 2017. 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 He is due to start his chemotherapy with carboplatin today. He notes that over the last few weeks he has been feeling about the same. He notes that the mass in his jaw continues to drain foul-smelling fluid. It has been painful particularly when he tries to chew. He has been using oxycodone. He is taking 10 mg about every 4 hr and finds that he gets fairly good relief with this. He has not noted any new adenopathy or masses. Strength and energy level have been stable. No shortness of breath or cough. No nausea or vomiting. His appetite has been fair. He is able to eat soft foods and liquids but is having trouble chewing more solid things. He has noted a tendency towards constipation with his pain medication and has been controlling it with milk of magnesia. He denies any other changes in his health. His medications include Lipitor oxycodone pantoprazole Xarelto His past medical history is notable for atrial fibrillation and a prior TIA. 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 - Patient Self-Reported Symptoms SR Constitution: Weight loss/gain SR eye issues: Vision changes SR ears, nose, mouth, throat issues: Changes in taste SR respiratory issues: Cough, Mucous SR Cardiovascular issues: Shortness of breath with activity or lying flat SR Skin issues: Dry skin SR Gastrointestinal issues: Poor or no appetite, Change in bowel pattern SR Genitourinary issues: Frequent urination, Change in stream SR Musculoskeletal issues: Muscle weakness, Muscle pain or cramps, Cold hands or feet, Difficulty walking SR Neuro issues: Lightheaded/dizzy, Difficulty balancing SR Endocrine issues: Excessive urination Home Medications and Allergies Home Medications Medication Instructions Recorded Confirmed Type atorvastatin 40 mg PO HS #90 tab 09/29/17 03/15/18 Rx oxycodone 10 mg tablet 10 mg PO Q4-6H PRN #120 tab 02/22/18 03/14/18 Rx Dis[address]ing Permit 02/27/18 03/02/18 History rivaroxaban [Xarelto] 15 mg PO QPM 02/27/18 03/15/18 History pantoprazole 40 mg PO BID 02/28/18 03/14/18 History Allergies Allergy/AdvReac Type Severity Reaction Status Date / Time No Known Drug Allergies Allergy Verified 03/15/18 13:43 Exam Vital signs: Last Vital Signs Temp 98 F 03/20/18 08:56 Pulse 100 H 03/20/18 08:56 Resp 18 03/20/18 08:56 BP 134/75 03/20/18 08:56 Pulse Ox 96 02/27/18 09:59 - Constitutional positive no acute distress, positive average body habitus - Routine HEENT Exam Head: Present: normocephalic, atraumatic Eye: Present: EOMI, PERRL. Absent: conjunctival icterus, scleral injection ENT: Present: mucous membranes moist Comments: He has postoperative changes on the right ear. He has a mass in the right mandible with some overlying erythema and an ulcerated area. The lesion measures about 3 cm and is tender. - Routine Neck Exam Present: supple. Absent: lymphadenopathy Comments: He does have some radiation changes in the neck. - Routine Respiratory Exam Present: Clear to auscultation bilaterally. Absent: rales, wheezes - Routine Cardiovascular Exam Present: RRR, S1, S2. Absent: murmur - Routine Abdominal Exam Present: soft, normoactive bowel sounds. Absent: tenderness, organomegaly - Routine Extremities Exam Absent: cyanosis, clubbing, edema - Routine Skin Exam Present: intact. Absent: petechiae, rash - Routine Neurological Exam Present: alert, oriented X3 - Routine Psychiatric Exam Present: normal affect, normal thought process Results - Imaging Additional studies: Procedures Excision of Duodenum, Via Natural or Artificial Opening Endoscopic, Diagnostic ( 05/01/17) Excision of Stomach, Pylorus, Via Natural or Artificial Opening Endoscopic, Diagnostic (02/02/18) Transfusion of Nonautologous Red Blood Cells into Peripheral Vein, Percutaneous Approach (02/02/18) Venous catheterization, not elsewhere classified (08/07/11) Assessment and Plan (1) 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 He does not have any definite evidence of distant metastasis. He will start his chemotherapy with single agent carboplatin today. He will have weekly CBCs return to clinic in about 3 weeks for follow-up. The side effects of chemotherapy including nausea vomiting fatigue change in taste and appetite risk for cytopenias and infection were reviewed with the patient again today. He is having increasing pain in the jaw but does have I think adequate control for now. If he has a good response to chemotherapy, anticipate that is need for pain medication will decrease. However if he does not have a good response he may benefit from long-acting opiates. Current visit: No Status: Chronic
--- NOTE | 2018-03-20 09:34 | ONC.NAV ---
Description: [place]C [place] [facility] [place] in [place] Activity: Called the [place] program to clarify if pt's benefit is now in effect. It was not. Called Korin, the insurance sales producer for pt at the [facility] office, and left a second message (message also left yesterday) re: what the status is of their clinic/provider doing providing authorization for [place] to utilize his [place], since [place] than [place] from [place]. Requested return call.
[2018-03-20 09:47] LABS: Add Manual Diff / Slide Review NO; Basophils Percent Auto 0.3 % (0-2); Eosinophils Percent Auto 1.4 % (2-4); Hemoglobin 11.4 g/dL (13.5-17.5); Lymphocytes Percent Auto 19.1 % (25-40); Mean Corpuscular HGB Conc 31.6 % (30-36); Mean Corpuscular Hemoglobin 25.8 PG (26-34); Mean Corpuscular Volume 81.5 fL (80-100); Monocytes Percent Auto 11.7 % (3-14); Neutrophils Absolute Auto 5100 /uL (3000-5900); Neutrophils Percent Auto 67.5 % (50-75); Platelet Count 152 X10^3/uL (150-400); Red Blood Cell Count 4.42 X10^6/uL (4.5-5.9); Red Cell Distribution Width 16.7 % (11.6-14.8); White Blood Cell Count 7.6 X10^3/uL (4.5-11.0)
[2018-03-20 09:58] LABS: Alanine Aminotransferase 22 IU/L (21-72); Albumin 3.7 g/dL (3.5-5.0); Albumin Globulin Ratio 1.4 (1.0-2.8); Alkaline Phosphatase 54 U/L (38-126); Aspartate Aminotransferase 18 IU/L (17-59); BUN Creatinine Ratio 18.9 (6-22); Bilirubin Total 0.5 mg/dL (0.2-1.3); Blood Urea Nitrogen 17 mg/dL (9-20); Calcium 8.8 mg/dL (8.4-10.2); Carbon Dioxide 31 mmol/L (22-32); Chloride 100 mmol/L (98-107); Estimated Glomerular Filt Rate > 60.0 mL/min (>60); Globulin 2.7 g/dL (1.7-4.1); Glucose 90 mg/dL (80-110); HEMOLYSIS < 15 (0-50); Potassium 4.2 mmol/L (3.4-5.1); Sodium 141 mmol/L (137-145); Total Protein 6.4 g/dL (6.3-8.2)
--- NOTE | 2018-03-20 10:23 | ONC.NAV ---
*Pt received a Chemo Quilt today.
[2018-03-20] MEDS: DEXAMETHASONE 12 MG in SODIUM CHLORIDE 0.9% 50 ML 212 ML IV (10:29)
[2018-03-20] MEDS: LORazepam 0.5 MG TABLET PO (10:29)
[2018-03-20] MEDS: SODIUM CHLORIDE 0.9% 100 ML 21 ML IV (10:30)
[2018-03-20] MEDS: ONDANSETRON 16 MG in SODIUM CHLORIDE 0.9% 50 ML 232 ML IV (11:04)
[2018-03-20] MEDS: FOSAPREPITANT 150 MG in SODIUM CHLORIDE 0.9% 150 ML 300 ML IV (11:21)
[2018-03-20] MEDS: SODIUM CHLORIDE 0.9% IV (12:20)
[2018-03-20] MEDS: CARBOPLATIN IV (12:20)
--- NOTE | 2018-03-26 16:48 | PC.NURSE ---
Pt called to report that his tumor located on his R Jaw has increased in its weeping. He has a lab on 03/27 and he will have an RN felix to see if there is anything we can do.
[2018-03-27 14:34] LABS: Add Manual Diff / Slide Review NO; Basophils Percent Auto 0.5 % (0-2); Eosinophils Percent Auto 1.3 % (2-4); Hematocrit 36.7 % (41-53); Hemoglobin 11.7 g/dL (13.5-17.5); Lymphocytes Percent Auto 20.4 % (25-40); Mean Corpuscular HGB Conc 31.8 % (30-36); Mean Corpuscular Hemoglobin 25.8 PG (26-34); Mean Corpuscular Volume 81.2 fL (80-100); Monocytes Percent Auto 8.3 % (3-14); Neutrophils Absolute Auto 4800 /uL (3000-5900); Neutrophils Percent Auto 69.5 % (50-75); Platelet Count 143 X10^3/uL (150-400); Red Blood Cell Count 4.52 X10^6/uL (4.5-5.9); Red Cell Distribution Width 17.7 % (11.6-14.8); White Blood Cell Count 6.9 X10^3/uL (4.5-11.0)
--- NOTE | 2018-03-27 16:14 | PC.NURSE ---
labs stable, see provider for symptom management on 03/28
[2018-03-28 16:20] VITALS: BP 140/90; PULSE 87; RESP 18; TEMP 36.7; O2SAT 99
--- NOTE | 2018-03-28 16:25 | P.PNONC_ITS ---
PN -Subjective Interval history: Diagnosis: Squamous cell carcinoma involving the mandible Previous treatment: 1. Radiation therapy finishing July 2017. 2. 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 I seen today because of increasing pain in his mandible. He had been using oxycodone every 4-6 hours in getting brief relief from it. However, it had not been working as well as it did previously. Over the last few days he noticed some increasing discomfort along the mandible and more posteriorly towards the ear. It was more difficult for him to open his mouth and to chew. Earlier today, he noticed a new area of drainage had opened. After that, the pressure and pain sensation has diminished somewhat in the pain is only intermittent now. He has been able to eat soft foods including a eggs and yogurt. He is able to chew some soft things but is not eating more solid food. His weight has been stable. He denies any nausea or vomiting. No fevers or chills. He denies any other changes in his health. His medications include Lipitor oxycodone pantoprazole Xarelto His past medical history is notable for atrial fibrillation and a prior TIA. 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 - Patient Self-Reported Symptoms SR Constitution: Weight loss/gain SR eye issues: Vision changes SR ears, nose, mouth, throat issues: Changes in taste SR respiratory issues: Cough, Mucous SR Cardiovascular issues: Shortness of breath with activity or lying flat SR Skin issues: Dry skin SR Gastrointestinal issues: Poor or no appetite, Change in bowel pattern SR Genitourinary issues: Frequent urination, Change in stream SR Musculoskeletal issues: Muscle weakness, Muscle pain or cramps, Cold hands or feet, Difficulty walking SR Neuro issues: Lightheaded/dizzy, Difficulty balancing SR Endocrine issues: Excessive urination Home Medications and Allergies Home Medications Medication Instructions Recorded Confirmed Type atorvastatin 40 mg PO HS #90 tab 09/29/17 03/15/18 Rx oxycodone 10 mg tablet 10 mg PO Q4-6H PRN #120 tab 02/22/18 03/14/18 Rx Disability Parking Permit 02/27/18 03/02/18 History rivaroxaban [Xarelto] 15 mg PO QPM 02/27/18 03/15/18 History pantoprazole 40 mg PO BID 02/28/18 03/14/18 History morphine 15 mg PO Q4-6H PRN 30 Days #100 tab 03/27/18 Rx Allergies Allergy/AdvReac Type Severity Reaction Status Date / Time No Known Drug Allergies Allergy Verified 03/15/18 13:43 Exam - Constitutional positive no acute distress, positive average body habitus - Routine HEENT Exam Head: Present: normocephalic, atraumatic Eye: Present: EOMI, PERRL. Absent: conjunctival icterus, scleral injection ENT: Present: mucous membranes moist, oropharynx clear Comments: His mandibular mass is stable in size. There is some erythema and some tenderness to palpation but I do not feel any fluctuance. His neck has some radiation changes but no palpable masses. - Routine Neck Exam Absent: lymphadenopathy, thyromegaly - Routine Respiratory Exam Present: Clear to auscultation bilaterally. Absent: rales, wheezes - Routine Cardiovascular Exam Present: RRR, S1, S2. Absent: murmur - Routine Abdominal Exam Present: soft, normoactive bowel sounds. Absent: tenderness Results - Labs Laboratory Last Values WBC 6.9 X10^3/uL (4.5-11.0) 03/27/18 14:16 RBC 4.52 X10^6/uL (4.5-5.9) 03/27/18 14:16 Hgb 11.7 g/dL (13.5-17.5) L 03/27/18 14:16 Hct 36.7 % (41-53) L 03/27/18 14:16 MCV 81.2 fL (80-100) 03/27/18 14:16 MCH 25.8 PG (26-34) L 03/27/18 14:16 MCHC 31.8 % (30-36) 03/27/18 14:16 RDW 17.7 % (11.6-14.8) H 03/27/18 14:16 Plt Count 143 X10^3/uL (150-400) L 03/27/18 14:16 Neut % (Auto) 69.5 % (50-75) 03/27/18 14:16 Lymph % (Auto) 20.4 % (25-40) L 03/27/18 14:16 [place] % (Auto) 8.3 % (3-14) 03/27/18 14:16 Eos % (Auto) 1.3 % (2-4) L 03/27/18 14:16 Baso % (Auto) 0.5 % (0-2) 03/27/18 14:16 Neut # (Auto) 4800 /uL (5906-4694) 03/27/18 14:16 Sodium 141 mmol/L (137-145) 03/20/18 09:15 Potassium 4.2 mmol/L (3.4-5.1) 03/20/18 09:15 Chloride 100 mmol/L (98-107) 03/20/18 09:15 Carbon Dioxide 31 mmol/L (22-32) 03/20/18 09:15 BUN 17 mg/dL (9-20) 03/20/18 09:15 Creatinine 0.90 mg/dL (0.66-1.25) 03/20/18 09:15 Estimated GFR > 60.0 mL/min (>60) 03/20/18 09:15 BUN/Creatinine Ratio 18.9 (6-22) 03/20/18 09:15 Glucose 90 mg/dL (80-110) 03/20/18 09:15 Calcium 8.8 mg/dL (8.4-10.2) 03/20/18 09:15 Total Bilirubin 0.5 mg/dL (0.2-1.3) 03/20/18 09:15 AST 18 IU/L (17-59) 03/20/18 09:15 ALT 22 IU/L (21-72) 03/20/18 09:15 Alkaline Phosphatase 54 U/L (38-126) 03/20/18 09:15 Total Protein 6.4 g/dL (6.3-8.2) 03/20/18 09:15 Albumin 3.7 g/dL (3.5-5.0) 03/20/18 09:15 Globulin 2.7 g/dL (1.7-4.1) 03/20/18 09:15 Albumin/Globulin Ratio 1.4 (1.0-2.8) 03/20/18 09:15 - Imaging Additional studies: Procedures Excision of Duodenum, Via Natural or Artificial Opening Endoscopic, Diagnostic ( 05/01/17) Excision of Stomach, Pylorus, Via Natural or Artificial Opening Endoscopic, Diagnostic (02/02/18) Transfusion of Nonautologous Red Blood Cells into Peripheral Vein, Percutaneous Approach (02/02/18) Venous catheterization, not elsewhere classified (08/07/11) Assessment and Plan (1) 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 He has had some recent increase in his pain and less control with oxycodone. He was given a prescription for morphine but has not tried it yet. He will go ahead and try that today. He will return to clinic in about 2 weeks or so for follow-up. I would likely him at least 2 doses of chemotherapy before deciding whether it is helping or not. If he fails to respond to a carboplatin, immunotherapy may be his next option. Current visit: No Status: Chronic
[2018-04-03 15:02] LABS: Add Manual Diff / Slide Review NO; Basophils Percent Auto 0.4 % (0-2); Eosinophils Percent Auto 0.4 % (2-4); Hematocrit 36.1 % (41-53); Hemoglobin 11.6 g/dL (13.5-17.5); Lymphocytes Percent Auto 21.1 % (25-40); Mean Corpuscular Hemoglobin 26.3 PG (26-34); Monocytes Percent Auto 10.6 % (3-14); Neutrophils Absolute Auto 3800 /uL (3000-5900); Neutrophils Percent Auto 67.5 % (50-75); Platelet Count 78 X10^3/uL (150-400); Red Cell Distribution Width 18.6 % (11.6-14.8); White Blood Cell Count 5.6 X10^3/uL (4.5-11.0)
[2018-04-10 09:53] LABS: Add Manual Diff / Slide Review NO; Basophils Percent Auto 0.3 % (0-2); Eosinophils Percent Auto 0.3 % (2-4); Hematocrit 38.4 % (41-53); Hemoglobin 12.3 g/dL (13.5-17.5); Lymphocytes Percent Auto 28.5 % (25-40); Mean Corpuscular Hemoglobin 26.2 PG (26-34); Mean Corpuscular Volume 81.8 fL (80-100); Monocytes Percent Auto 9.3 % (3-14); Neutrophils Absolute Auto 3400 /uL (3000-5900); Neutrophils Percent Auto 61.6 % (50-75); Platelet Count 85 X10^3/uL (150-400); Red Cell Distribution Width 20.2 % (11.6-14.8); White Blood Cell Count 5.5 X10^3/uL (4.5-11.0)
[2018-04-10 10:05] VITALS: BP 94/74; PULSE 99; RESP 17; TEMP 37.1; O2SAT 98
[2018-04-10 10:06] LABS: Anisocytosis 2+; Poikilocytosis 1+
[2018-04-10 10:16] LABS: Alanine Aminotransferase 21 IU/L (21-72); Albumin 3.9 g/dL (3.5-5.0); Albumin Globulin Ratio 1.3 (1.0-2.8); Alkaline Phosphatase 64 U/L (38-126); Aspartate Aminotransferase 20 IU/L (17-59); BUN Creatinine Ratio 22.5 (6-22); Bilirubin Total 0.3 mg/dL (0.2-1.3); Blood Urea Nitrogen 18 mg/dL (9-20); Carbon Dioxide 28 mmol/L (22-32); Chloride 101 mmol/L (98-107); Estimated Glomerular Filt Rate > 60.0 mL/min (>60); Globulin 2.9 g/dL (1.7-4.1); Glucose 103 mg/dL (80-110); HEMOLYSIS < 15 (0-50); Magnesium 2.2 mg/dL (1.6-2.3); Potassium 4.3 mmol/L (3.4-5.1); Sodium 140 mmol/L (137-145); Total Protein 6.8 g/dL (6.3-8.2)
--- NOTE | 2018-04-10 10:26 | ONC.PN ---
PN -Subjective Interval history: Diagnosis: Squamous cell carcinoma involving the mandible Previous treatment: 1. Radiation therapy finishing July 2017. 2. 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 Since his last visit here, he has been bothered by increasing pain in the jaw. He is using morphine 15 mg tablets. He is taking 1 about every 4 hr during the day and about every 2-3 hours night. He does get relief from the pain after taking the pills. He is averaging 10 or 11 pills daily. He denies any nausea or vomiting. He is having some difficulty swallowing. He is able to get liquids and soft things down okay though. 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 He also has noted some increased drainage from the main tumor. He thinks that it might be a little bit smaller however. He denies any fevers or chills. No unusual bleeding or bruising. No shortness of breath or cough. He is not having any other aches or pains. His medications include Lipitor morphine pantoprazole Xarelto His past medical history is notable for atrial fibrillation and a prior TIA. 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 - Patient Self-Reported Symptoms SR Constitution: Weight loss/gain SR eye issues: Vision changes SR ears, nose, mouth, throat issues: Mouth sores, Changes in taste, Hoarseness SR respiratory issues: Mucous SR Cardiovascular issues: Extreme swelling SR Skin issues: Dry skin SR Gastrointestinal issues: Poor or no appetite, Change in bowel pattern, Constipation SR Genitourinary issues: Frequent urination, Burning/painful urination SR Musculoskeletal issues: Cold hands or feet SR Neuro issues: Difficulty balancing SR Hematologic issues: Swollen lymph nodes SR Endocrine issues: Excessive urination Home Medications and Allergies Home Medications Medication Instructions Recorded Confirmed Type atorvastatin 40 mg PO HS #90 tab 09/29/17 03/15/18 Rx oxycodone 10 mg tablet 10 mg PO Q4-6H PRN #120 tab 02/22/18 03/14/18 Rx Disability Parking Permit 02/27/18 03/02/18 History rivaroxaban [Xarelto] 15 mg PO QPM 02/27/18 03/15/18 History pantoprazole 40 mg PO BID 02/28/18 03/14/18 History morphine 15 mg PO Q4-6H PRN 30 Days #100 tab 03/27/18 Rx Allergies Allergy/AdvReac Type Severity Reaction Status Date / Time No Known Drug Allergies Allergy Verified 03/15/18 13:43 Exam - Constitutional positive no acute distress, positive average body habitus - Routine HEENT Exam Head: Present: normocephalic, atraumatic Eye: Present: EOMI, PERRL. Absent: conjunctival icterus, scleral injection ENT: Present: mucous membranes moist Comments: The tumor on the right mandible appears to be stable in size to me. It does have a greenish slightly purulent discharge. I do not feel any cervical adenopathy. - Routine Neck Exam Present: supple. Absent: lymphadenopathy, thyromegaly - Routine Respiratory Exam Present: Clear to auscultation bilaterally. Absent: rales, wheezes - Routine Cardiovascular Exam Present: RRR, S1, S2. Absent: murmur - Routine Abdominal Exam Present: soft, normoactive bowel sounds. Absent: tenderness, mass - Routine Neurological Exam Present: alert, oriented X3 - Routine Psychiatric Exam Present: normal affect, normal thought process Results - Labs Laboratory Last Values WBC 5.5 X10^3/uL (4.5-11.0) 04/10/18 09:29 RBC 4.70 X10^6/uL (4.5-5.9) 04/10/18 09:29 Hgb 12.3 g/dL (13.5-17.5) L 04/10/18 09:29 Hct 38.4 % (41-53) L 04/10/18 09:29 MCV 81.8 fL (80-100) 04/10/18 09:29 MCH 26.2 PG (26-34) 04/10/18 09:29 MCHC 32.0 % (30-36) 04/10/18 09:29 RDW 20.2 % (11.6-14.8) H 04/10/18 09:29 Plt Count 85 X10^3/uL (150-400) L 04/10/18 09:29 Neut % (Auto) 61.6 % (50-75) 04/10/18 09:29 Lymph % (Auto) 28.5 % (25-40) 04/10/18 09:29 [place] % (Auto) 9.3 % (3-14) 04/10/18 09: Eos % (Auto) 0.3 % (2-4) L 04/10/18 09: Baso % (Auto) 0.3 % (0-2) 04/10/18 09: Neut # (Auto) 3400 /uL (1878-7657) 04/10/18: RBC Morphology Not Reportable 04/10/18 Poikilocytosis 1+ H 04/10/18: Anisocytosis 2+ H 04/10/18: Sodium 140 mmol/L (137-145) 04/10/18: Potassium 4.3 mmol/L (3.4-5.1) 04/10/18: Chloride 101 mmol/L (98-107) 04/10/18: Carbon Dioxide 28 mmol/L (22-32) 04/10/18: BUN 18 mg/dL (9-20) 04/10/18: Creatinine 0.80 mg/dL (0.66-1.25) 04/10/18: Estimated GFR > 60.0 mL/min (>60) 04/10/18: BUN/Creatinine Ratio 22.5 (6-22) H 04/10/18: Glucose 103 mg/dL (80-110) 04/10/18: Calcium 9.0 mg/dL (8.4-10.2) 04/10/18: Magnesium 2.2 mg/dL (1.6-2.3) 04/10/18: Total Bilirubin 0.3 mg/dL (0.2-1.3) 04/10/18: AST 20 IU/L (17-59) 04/10/18: ALT 21 IU/L (21-72) 04/10/18: Alkaline Phosphatase 64 U/L (38-126) 04/10/18: Total Protein 6.8 g/dL (6.3-8.2) 04/10/18: Albumin 3.9 g/dL (3.5-5.0) 04/10/18: Globulin 2.9 g/dL (1.7-4.1) 04/10/18 09:29 Albumin/Globulin Ratio 1.3 (1.0-2.8) 04/10/18 09:29 - Imaging Additional studies: Procedures Excision of Duodenum, Via Natural or Artificial Opening Endoscopic, Diagnostic (05/01/17) Excision of Stomach, Pylorus, Via Natural or Artificial Opening Endoscopic, Diagnostic (02/02/18) Transfusion of Nonautologous Red Blood Cells into Peripheral Vein, Percutaneous Approach (02/02/18) Venous catheterization, not elsewhere classified (08/07/11) Assessment and Plan (1) 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 Current visit: No Status: Chronic He has tolerated his 1st cycle of chemotherapy reasonably well but does have some thrombocytopenia. It is not clear that he is responding. In fact is pain is getting worse and he has developed a fistula and is having more drainage. He does want to go ahead with the 2nd cycle of treatment today. Because of the thrombocytopenia, we will need to dose reduce down to an AUC of 4. We talked about other options including immunotherapy which would have about of 15-20% response rate. Patients who do respond though can have a good response. Side effects would be primarily autoimmune include colitis dermatitis pneumonitis. Any organ could be affected however. We also talked about the possibility of supportive care or hospice. The patient would like to go ahead with 1 additional cycle of chemotherapy. If he is not experiencing clinical benefit, he tells me that he would favor a palliative approach after that. He did ask about with dignity and I explained requirements for the law but did not seem interested in pursuing it at this point. He will return to clinic in about 3 weeks or so for follow-up. He is having some increasing purulent drainage from his lesion. Will try some antibiotics to see if that might help decrease his pain a bit. Also given a prescription for some long-acting morphine.
[2018-04-10] MEDS: DEXAMETHASONE 12 MG in SODIUM CHLORIDE 0.9% 50 ML 212 ML IV (10:49)
[2018-04-10] MEDS: ONDANSETRON 16 MG in SODIUM CHLORIDE 0.9% 50 ML 232 ML IV (11:12)
[2018-04-10] MEDS: FOSAPREPITANT 150 MG in SODIUM CHLORIDE 0.9% 150 ML 300 ML IV (11:40)
[2018-04-10] MEDS: SODIUM CHLORIDE 0.9% 100 ML 21 ML IV (11:42)
[2018-04-10] MEDS: LORazepam 0.5 MG TABLET PO (11:46)
[2018-04-10] MEDS: SODIUM CHLORIDE 0.9% IV (12:17)
[2018-04-10] MEDS: CARBOPLATIN IV (12:17)
--- NOTE | 2018-04-10 14:48 | PC.NURSE ---
Pts DTR reached out regarding her fathers visit today. He told her that Dr Zamora thought he only had 6 months to live and should get his affairs in order and begin thinking about hospice. I reviewed Dr Navarro notes and while he suggested hospice there was never a mentioning of a timeline. I explained to her it appears pt is not benefitting from the chemo but Dr Zamora did talk with him about immunotherapy. Dtr is concerned when the time does come, she will need help providing care for him and still try to maintain some normalcy for herself and kids. She is very willing to attend his next Dr burgos on 05/01 as well as speak to Clare on moving forward with some type of plan.
[2018-04-17 11:57] LABS: Add Manual Diff / Slide Review NO; Basophils Percent Auto 0.3 % (0-2); Hematocrit 38.2 % (41-53); Hemoglobin 12.5 g/dL (13.5-17.5); Lymphocytes Percent Auto 31.9 % (25-40); Mean Corpuscular HGB Conc 32.8 % (30-36); Mean Corpuscular Hemoglobin 26.9 PG (26-34); Mean Corpuscular Volume 82.1 fL (80-100); Monocytes Percent Auto 10.4 % (3-14); Neutrophils Absolute Auto 2200 /uL (3000-5900); Neutrophils Percent Auto 56.4 % (50-75); Platelet Count 144 X10^3/uL (150-400); Red Blood Cell Count 4.65 X10^6/uL (4.5-5.9); Red Cell Distribution Width 21.4 % (11.6-14.8); White Blood Cell Count 3.9 X10^3/uL (4.5-11.0)
[2018-04-17 12:09] LABS: Alanine Aminotransferase 31 IU/L (21-72); Albumin 3.8 g/dL (3.5-5.0); Albumin Globulin Ratio 1.5 (1.0-2.8); Alkaline Phosphatase 56 U/L (38-126); Aspartate Aminotransferase 23 IU/L (17-59); BUN Creatinine Ratio 18.6 (6-22); Bilirubin Total 0.3 mg/dL (0.2-1.3); Blood Urea Nitrogen 13 mg/dL (9-20); Calcium 9.2 mg/dL (8.4-10.2); Carbon Dioxide 29 mmol/L (22-32); Chloride 103 mmol/L (98-107); Estimated Glomerular Filt Rate > 60.0 mL/min (>60); Globulin 2.6 g/dL (1.7-4.1); Glucose 93 mg/dL (80-110); HEMOLYSIS < 15 (0-50); Potassium 4.6 mmol/L (3.4-5.1); Sodium 141 mmol/L (137-145); Total Protein 6.4 g/dL (6.3-8.2)
[2018-04-17 12:25] LABS: Anisocytosis 2+; Poikilocytosis 1+
[2018-04-17 14:09] VITALS: BP 136/72; PULSE 89; RESP 17; TEMP 36.7
--- NOTE | 2018-04-17 17:02 | P.PNONC_ITS ---
PN -Subjective Interval history: Diagnosis: Squamous cell carcinoma involving the mandible Previous treatment: 1. Radiation therapy finishing July 2017. 2. 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 Since his last visit here a week ago , he feels like his mass has been enlarging. He has developed increasing fistula. It has been difficult for him to swallow. He is able to manage if he holds a piece of gauze up to his cheek while he eats. He notes that he is having some increased pain inside his mouth. It is becoming more difficult for him to open his mouth. He has continued to lose some weight. He denies any nausea or vomiting. No fevers chills or sweats. He is not having any shortness of breath or cough. He has not noted any masses or adenopathy. His medications include Lipitor morphine pantoprazole Xarelto His past medical history is notable for atrial fibrillation and a prior TIA. 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 - Patient Self-Reported Symptoms SR Constitution: Weight loss/gain SR eye issues: Vision changes SR ears, nose, mouth, throat issues: Mouth sores, Changes in taste, Swollen glands SR respiratory issues: Mucous SR Cardiovascular issues: Extreme swelling SR Skin issues: Dry skin SR Gastrointestinal issues: Poor or no appetite, Change in bowel pattern, Constipation SR Genitourinary issues: Frequent urination, Change in stream SR Musculoskeletal issues: Cold hands or feet, Difficulty walking SR Neuro issues: Difficulty balancing SR Hematologic issues: Swollen lymph nodes SR Endocrine issues: Excessive urination Home Medications and Allergies Home Medications Medication Instructions Recorded Confirmed Type atorvastatin 40 mg PO HS #90 tab 09/29/17 04/10/18 Rx oxycodone 10 mg tablet 10 mg PO Q4-6H PRN #120 tab 02/22/18 04/10/18 Rx Disability [address]ing Permit 02/27/18 03/02/18 History rivaroxaban [Xarelto] 15 mg PO QPM 02/27/18 04/10/18 History pantoprazole 40 mg PO BID 02/28/18 04/10/18 History morphine 15 mg PO Q4-6H PRN 30 Days #100 tab 03/27/18 04/10/18 Rx amoxicillin-pot clavulanate 1 tab PO Q12H 14 Days #28 tab 04/10/18 Rx [Augmentin] morphine [MS Contin] 30 mg PO Q8H 30 Days #90 tab 04/10/18 Rx Allergies Allergy/AdvReac Type Severity Reaction Status Date / Time No Known Drug Allergies Allergy Verified 03/15/18 13:43 Exam - Constitutional positive no acute distress, positive average body habitus - Routine HEENT Exam Head: Present: normocephalic, atraumatic Eye: Present: EOMI, PERRL. Absent: conjunctival icterus, scleral injection ENT: Present: mucous membranes moist Comments: He has a a he proximally 3 cm mass in the right mandibular area. There is central necrosis. It is larger than at his previous visit. - Routine Neck Exam Present: supple. Absent: lymphadenopathy Comments: He has radiation changes of the skin but no palpable masses. - Routine Respiratory Exam Present: Clear to auscultation bilaterally. Absent: rales, wheezes - Routine Cardiovascular Exam Present: RRR, S1, S2. Absent: murmur Results - Labs Laboratory Last Values WBC 3.9 X10^3/uL (4.5-11.0) L 04/17/18 11:43 RBC 4.65 X10^6/uL (4.5-5.9) 04/17/18 11:43 Hgb 12.5 g/dL (13.5-17.5) L 04/17/18 11:43 Hct 38.2 % (41-53) L 04/17/18 11:43 MCV 82.1 fL (80-100) 04/17/18 11:43 MCH 26.9 PG (26-34) 04/17/18 11:43 MCHC 32.8 % (30-36) 04/17/18 11:43 RDW 21.4 % (11.6-14.8) H 04/17/18 11:43 Plt Count 144 X10^3/uL (150-400) L 04/17/18 11:43 Neut % (Auto) 56.4 % (50-75) 04/17/18 11:43 Lymph % (Auto) 31.9 % (25-40) 04/17/18 11:43 [place] % (Auto) 10.4 % (3-14) 04/17/18 11:43 Eos % (Auto) 1.0 % (2-4) L 04/17/18 11:43 Baso % (Auto) 0.3 % (0-2) 04/17/18 11:43 Neut # (Auto) 2200 /uL (0156-2913) L 04/17/18 11:43 RBC Morphology Not Reportable 04/17/18 11:43 Poikilocytosis 1+ H 04/17/18 11:43 Anisocytosis 2+ H 04/17/18 11:43 Sodium 141 mmol/L (137-145) 04/17/18 11:43 Potassium 4.6 mmol/L (3.4-5.1) 04/17/18 11:43 Chloride 103 mmol/L (98-107) 04/17/18 11:43 Carbon Dioxide 29 mmol/L (22-32) 04/17/18 11:43 BUN 13 mg/dL (9-20) 04/17/18 11:43 Creatinine 0.70 mg/dL (0.66-1.25) 04/17/18 11:43 Estimated GFR > 60.0 mL/min (>60) 04/17/18 11:43 BUN/Creatinine Ratio 18.6 (6-22) 04/17/18 11:43 Glucose 93 mg/dL (80-110) 04/17/18 11:43 Calcium 9.2 mg/dL (8.4-10.2) 04/17/18 11:43 Magnesium 2.2 mg/dL (1.6-2.3) 04/10/18 09:29 Total Bilirubin 0.3 mg/dL (0.2-1.3) 04/17/18 11:43 AST 23 IU/L (17-59) 04/17/18 11:43 ALT 31 IU/L (21-72) 04/17/18 11:43 Alkaline Phosphatase 56 U/L (38-126) 04/17/18 11:43 Total Protein 6.4 g/dL (6.3-8.2) 04/17/18 11:43 Albumin 3.8 g/dL (3.5-5.0) 04/17/18 11:43 Globulin 2.6 g/dL (1.7-4.1) 04/17/18 11:43 Albumin/Globulin Ratio 1.5 (1.0-2.8) 04/17/18 11:43 - Imaging Additional studies: Procedures Excision of Duodenum, Via Natural or Artificial Opening Endoscopic, Diagnostic ( 05/01/17) Excision of Stomach, Pylorus, Via Natural or Artificial Opening Endoscopic, Diagnostic (02/02/18) Transfusion of Nonautologous Red Blood Cells into Peripheral Vein, Percutaneous Approach (02/02/18) Venous catheterization, not elsewhere classified (08/07/11) Assessment and Plan (1) 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 Current visit: No Status: Chronic He has had 2 cycles of carboplatin thus far and is clearly not responding. He is developing worsening fistula. Will plan on stopping the carboplatin. We talked about additional options. Immunotherapy has a response rate of about 15- 20% for head neck cancer. Generally is pretty well tolerated. Risk is for primarily autoimmune conditions such as colitis dermatitis pneumonitis or thyroiditis. Patients who do respond however can do quite well with deep and long-lasting remissions. Other options would include alternative chemotherapy such as Erbitux, Taxotere or 5 FU. Response rates to these drugs would also be in the 15-20% range although the duration of response would be expected to be fairly short, on the order of months. The patient is willing to go ahead with the immunotherapy. We will plan on starting as soon as can be practically arranged. I think we will get a good idea whether he is responding after her 6- 8 weeks or so. If he fails to respond, he may not be interested in pursuing any further chemotherapy and may prefer palliative approach. He is having some trouble chewing and swallowing. In addition the fistulas making it difficult to eat. Will make referral to speech therapy to see if any palliative procedures or techniques can be done. He will return to clinic here in about 2 weeks or so for follow-up but sooner should the need arise. - Time Spent with Patient 40 min
--- NOTE | 2018-04-18 10:02 | ONC.SCHED ---
[facility] CHE[facility] ~ DOUBLE-CHECKED WITH RHEA ON OPDIVO SPECIFICALLY
[2018-04-24 11:38] LABS: Add Manual Diff / Slide Review NO; Basophils Percent Auto 0.2 % (0-2); Eosinophils Percent Auto 0.2 % (2-4); Hematocrit 37.2 % (41-53); Hemoglobin 12.1 g/dL (13.5-17.5); Lymphocytes Percent Auto 33.4 % (25-40); Mean Corpuscular HGB Conc 32.6 % (30-36); Mean Corpuscular Hemoglobin 26.8 PG (26-34); Mean Corpuscular Volume 82.3 fL (80-100); Monocytes Percent Auto 13.3 % (3-14); Neutrophils Absolute Auto 2000 /uL (3000-5900); Neutrophils Percent Auto 52.9 % (50-75); Platelet Count 113 X10^3/uL (150-400); Red Blood Cell Count 4.52 X10^6/uL (4.5-5.9); Red Cell Distribution Width 22.9 % (11.6-14.8); White Blood Cell Count 3.8 X10^3/uL (4.5-11.0)
[2018-04-24 11:58] LABS: Anisocytosis 2+; Hypochromasia 1+; Poikilocytosis 1+
[2018-05-01 13:22] LABS: Add Manual Diff / Slide Review NO; Basophils Percent Auto 0.3 % (0-2); Eosinophils Percent Auto 0.5 % (2-4); Hematocrit 36.8 % (41-53); Hemoglobin 12.1 g/dL (13.5-17.5); Lymphocytes Percent Auto 37.7 % (25-40); Mean Corpuscular HGB Conc 32.8 % (30-36); Mean Corpuscular Hemoglobin 27.4 PG (26-34); Mean Corpuscular Volume 83.8 fL (80-100); Monocytes Percent Auto 12.7 % (3-14); Neutrophils Absolute Auto 1900 /uL (3000-5900); Neutrophils Percent Auto 48.8 % (50-75); Platelet Count 65 X10^3/uL (150-400); Red Blood Cell Count 4.39 X10^6/uL (4.5-5.9); White Blood Cell Count 3.9 X10^3/uL (4.5-11.0)
[2018-05-01 13:28] VITALS: BP 132/89; PULSE 93; RESP 18; TEMP 36.4; O2SAT 100
[2018-05-01 13:30] LABS: Alanine Aminotransferase 24 IU/L (21-72); Albumin 3.7 g/dL (3.5-5.0); Albumin Globulin Ratio 1.4 (1.0-2.8); Alkaline Phosphatase 55 U/L (38-126); Aspartate Aminotransferase 21 IU/L (17-59); Bilirubin Total 0.4 mg/dL (0.2-1.3); Blood Urea Nitrogen 14 mg/dL (9-20); Calcium 9.2 mg/dL (8.4-10.2); Carbon Dioxide 30 mmol/L (22-32); Chloride 101 mmol/L (98-107); Estimated Glomerular Filt Rate > 60.0 mL/min (>60); Globulin 2.7 g/dL (1.7-4.1); Glucose 110 mg/dL (80-110); HEMOLYSIS < 15 (0-50); Potassium 4.2 mmol/L (3.4-5.1); Sodium 142 mmol/L (137-145); Total Protein 6.4 g/dL (6.3-8.2)
--- NOTE | 2018-05-01 13:32 | P.PNONC_ITS ---
PN -Subjective Interval history: Diagnosis: Squamous cell carcinoma involving the mandible Previous treatment: 1. Radiation therapy finishing July 2017. 2. 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 Since his last visit here, he has noted continue enlargement of his mandibular mass. There has been increasing purulent drainage. He has not noted any increase in his pain however. He notes some induration and swelling more superiorly and posteriorly around the mass. He has also noted a little bit more swelling in the neck. He is able to swallow liquids and soft foods. He is not able to eat anything solid. He denies any fevers chills or sweats. No shortness of breath or cough for chest pain. No GI complaints. He has had occasional constipation which he treats with milk of magnesia. I and his pain regimen has been stable. He is using MS Contin and oxycodone for breakthrough pain 2 or 3 times a day. He finds that this gives adequate relief although it does make him somewhat sleepy. He denies any other changes in his health. His medications include Lipitor morphine pantoprazole Xarelto His past medical history is notable for atrial fibrillation and a prior TIA. 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 - Patient Self-Reported Symptoms SR Constitution: Weight loss/gain SR eye issues: Vision changes SR ears, nose, mouth, throat issues: Mouth sores, Changes in taste, Swollen glands SR respiratory issues: Mucous SR Cardiovascular issues: Extreme swelling SR Skin issues: Dry skin SR Gastrointestinal issues: Poor or no appetite, Change in bowel pattern, Constipation SR Genitourinary issues: Frequent urination, Change in stream SR Musculoskeletal issues: Cold hands or feet, Difficulty walking SR Neuro issues: Difficulty balancing SR Hematologic issues: Swollen lymph nodes SR Endocrine issues: Excessive urination Home Medications and Allergies Home Medications Medication Instructions Recorded Confirmed Type atorvastatin 40 mg PO HS #90 tab 09/29/17 04/10/18 Rx oxycodone 10 mg tablet 10 mg PO Q4-6H PRN #120 tab 02/22/18 04/10/18 Rx Disability Parking Permit 02/27/18 03/02/18 History rivaroxaban [Xarelto] 15 mg PO QPM 02/27/18 04/10/18 History pantoprazole 40 mg PO BID 02/28/18 04/10/18 History amoxicillin-pot clavulanate 1 tab PO Q12H 14 Days #28 tab 04/10/18 Rx [Augmentin] morphine [MS Contin] 30 mg PO Q8H 30 Days #90 tab 04/10/18 Rx Allergies Allergy/AdvReac Type Severity Reaction Status Date / Time No Known Drug Allergies Allergy Verified 03/15/18 13:43 Exam - Constitutional positive no acute distress, positive average body habitus - Routine HEENT Exam Head: Present: normocephalic, atraumatic Eye: Present: EOMI, PERRL. Absent: conjunctival icterus, scleral injection ENT: Present: mucous membranes moist - Routine Neck Exam Absent: lymphadenopathy Comments: I submandibular mass in the is continue to increase it is now approximately 3-1/ 2 to 4 cm in diameter. It has a dark colored eschar over the top. There is some purulent appearing drainage. Results - Labs Laboratory Last Values WBC 3.9 X10^3/uL (4.5-11.0) L 05/01/18 13:00 RBC 4.39 X10^6/uL (4.5-5.9) L 05/01/18 13:00 Hgb 12.1 g/dL (13.5-17.5) L 05/01/18 13:00 Hct 36.8 % (41-53) L 05/01/18 13:00 MCV 83.8 fL (80-100) 05/01/18 13:00 MCH 27.4 PG (26-34) 05/01/18 13:00 MCHC 32.8 % (30-36) 05/01/18 13:00 RDW 25.0 % (11.6-14.8) H 05/01/18 13:00 Plt Count 65 X10^3/uL (150-400) L 05/01/18 13:00 Neut % (Auto) 48.8 % (50-75) L 05/01/18 13:00 Lymph % (Auto) 37.7 % (25-40) 05/01/18 13:00 [place] % (Auto) 12.7 % (3-14) 05/01/18 13:00 Eos % (Auto) 0.5 % (2-4) L 05/01/18 13:00 Baso % (Auto) 0.3 % (0-2) 05/01/18 13:00 Neut # (Auto) 1900 /uL (6233-1477) L 05/01/18 13:00 RBC Morphology Not Reportable 04/24/18 11:15 Hypochromasia 1+ H 04/24/18 11:15 Poikilocytosis 1+ H 04/24/18 11:15 Anisocytosis 2+ H 04/24/18 11:15 Sodium 141 mmol/L (137-145) 04/17/18 11:43 Potassium 4.6 mmol/L (3.4-5.1) 04/17/18 11:43 Chloride 103 mmol/L (98-107) 04/17/18 11:43 Carbon Dioxide 29 mmol/L (22-32) 04/17/18 11:43 BUN 13 mg/dL (9-20) 04/17/18 11:43 Creatinine 0.70 mg/dL (0.66-1.25) 04/17/18 11:43 Estimated GFR > 60.0 mL/min (>60) 04/17/18 11:43 BUN/Creatinine Ratio 18.6 (6-22) 04/17/18 11:43 Glucose 93 mg/dL (80-110) 04/17/18 11:43 Calcium 9.2 mg/dL (8.4-10.2) 04/17/18 11:43 Magnesium 2.2 mg/dL (1.6-2.3) 04/10/18 09:29 Total Bilirubin 0.3 mg/dL (0.2-1.3) 04/17/18 11:43 AST 23 IU/L (17-59) 04/17/18 11:43 ALT 31 IU/L (21-72) 04/17/18 11:43 Alkaline Phosphatase 56 U/L (38-126) 04/17/18 11:43 Total Protein 6.4 g/dL (6.3-8.2) 04/17/18 11:43 Albumin 3.8 g/dL (3.5-5.0) 04/17/18 11:43 Globulin 2.6 g/dL (1.7-4.1) 04/17/18 11:43 Albumin/Globulin Ratio 1.5 (1.0-2.8) 04/17/18 11:43 - Imaging Additional studies: Procedures Excision of Duodenum, Via Natural or Artificial Opening Endoscopic, Diagnostic ( 05/01/17) Excision of Stomach, Pylorus, Via Natural or Artificial Opening Endoscopic, Diagnostic (02/02/18) Transfusion of Nonautologous Red Blood Cells into Peripheral Vein, Percutaneous Approach (02/02/18) Venous catheterization, not elsewhere classified (08/07/11) Assessment and Plan (1) 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 Current visit: No Status: Chronic He has not responded to carboplatin. Will try to treat him with immunotherapy. He will begin Opdivo today. He is aware that the response rate is only about 15-20%. He is willing to proceed with treatment. He will have his 1st dose today. He will return to clinic in about 2 weeks for follow-up.
[2018-05-01 13:46] LABS: Ovalocytes 1+; Poikilocytosis 2+
[2018-05-01 13:47] LABS: Anisocytosis 2+
[2018-05-01] MEDS: NIVOLUMAB 240 MG in SODIUM CHLORIDE 0.9% (CHEMO) 100 ML 248 ML IV (14:42)
[2018-05-01] MEDS: SODIUM CHLORIDE 0.9% 100 ML 21 ML IV (14:43)
[2018-05-16 10:22] LABS: Add Manual Diff / Slide Review NO; Basophils Percent Auto 0.2 % (0-2); Eosinophils Percent Auto 1.8 % (2-4); Hematocrit 37.5 % (41-53); Hemoglobin 12.2 g/dL (13.5-17.5); Lymphocytes Percent Auto 29.5 % (25-40); Mean Corpuscular HGB Conc 32.6 % (30-36); Mean Corpuscular Hemoglobin 27.7 PG (26-34); Mean Corpuscular Volume 84.7 fL (80-100); Monocytes Percent Auto 15.5 % (3-14); Neutrophils Absolute Auto 2300 /uL (3000-5900); Platelet Count 178 X10^3/uL (150-400); Red Blood Cell Count 4.42 X10^6/uL (4.5-5.9); Red Cell Distribution Width 26.4 % (11.6-14.8); White Blood Cell Count 4.3 X10^3/uL (4.5-11.0)
[2018-05-16 10:37] LABS: Alanine Aminotransferase 27 IU/L (21-72); Albumin 3.7 g/dL (3.5-5.0); Albumin Globulin Ratio 1.3 (1.0-2.8); Alkaline Phosphatase 55 U/L (38-126); Aspartate Aminotransferase 20 IU/L (17-59); BUN Creatinine Ratio 22.9 (6-22); Bilirubin Total 0.4 mg/dL (0.2-1.3); Blood Urea Nitrogen 16 mg/dL (9-20); Calcium 9.3 mg/dL (8.4-10.2); Carbon Dioxide 31 mmol/L (22-32); Chloride 102 mmol/L (98-107); Estimated Glomerular Filt Rate > 60.0 mL/min (>60); Globulin 2.8 g/dL (1.7-4.1); Glucose 84 mg/dL (80-110); HEMOLYSIS < 15 (0-50); Potassium 4.4 mmol/L (3.4-5.1); Sodium 142 mmol/L (137-145); Total Protein 6.5 g/dL (6.3-8.2)
[2018-05-16 10:50] VITALS: BP 118/67; PULSE 92; RESP 18; TEMP 36.9
[2018-05-16 11:00] LABS: Anisocytosis 2+; Ovalocytes 1+
--- NOTE | 2018-05-16 11:02 | P.PNONC_ITS ---
PN -Subjective Interval history: Diagnosis: Squamous cell carcinoma involving the mandible Previous treatment: 1. Radiation therapy finishing July 2017. 2. 2 doses of carboplatin for progressive disease 3. 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 Since his last visit here, he notes that his mandibular mass has been staying about the same. He continues to get serous drainage. The induration around the cheek in the upper part of the neck has been stable. He has not noted any enlargement of the mass or any new masses. He has noted that his voice has been a little bit more hoarse. He is able to swallow soft foods and liquids without difficulty. He denies any fevers or chills. No nausea or vomiting. His weight has been stable. He has not had any abdominal pain or adenopathy. He denies any skin rash or itching. He has not noted any shortness of breath cough for pain in the chest. He denies any other changes in his health. His medications include Lipitor morphine pantoprazole Xarelto His past medical history is notable for atrial fibrillation and a prior TIA. 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 - Patient Self-Reported Symptoms SR Constitution: Weight loss/gain SR eye issues: Vision changes SR ears, nose, mouth, throat issues: Hoarseness SR respiratory issues: Mucous SR Cardiovascular issues: Extreme swelling SR Skin issues: Dry skin SR Gastrointestinal issues: Poor or no appetite SR Genitourinary issues: Frequent urination SR Musculoskeletal issues: Cold hands or feet, Difficulty walking SR Neuro issues: Difficulty balancing SR Hematologic issues: Swollen lymph nodes SR Endocrine issues: Excessive urination Home Medications and Allergies Home Medications Medication Instructions Recorded Confirmed Type atorvastatin 40 mg PO HS #90 tab 09/29/17 04/10/18 Rx oxycodone 10 mg tablet 10 mg PO Q4-6H PRN #120 tab 02/22/18 04/10/18 Rx Disability Parking Permit 02/27/18 03/02/18 History rivaroxaban [Xarelto] 15 mg PO QPM 02/27/18 04/10/18 History pantoprazole 40 mg PO BID 02/28/18 04/10/18 History Allergies Allergy/AdvReac Type Severity Reaction Status Date / Time No Known Drug Allergies Allergy Verified 03/15/18 13:43 Exam - Constitutional positive no acute distress, positive average body habitus - Routine HEENT Exam Head: Present: normocephalic, atraumatic Eye: Present: EOMI, PERRL. Absent: conjunctival icterus, scleral injection ENT: Present: mucous membranes moist Comments: Is about a 4 cm mass in the right mandible with ulcerated area and serous drainage. There is some erythema of the neck and a little bit of tenderness but no palpable masses. The oropharynx is edentulous. - Routine Neck Exam Present: supple, tenderness. Absent: lymphadenopathy - Routine Respiratory Exam Present: Clear to auscultation bilaterally. Absent: rales, wheezes - Routine Cardiovascular Exam Present: RRR, S1, S2. Absent: murmur - Routine Abdominal Exam Present: soft, normoactive bowel sounds. Absent: tenderness, organomegaly, mass - Routine Skin Exam Absent: petechiae, rash - Routine Neurological Exam Present: alert, oriented X3 - Routine Psychiatric Exam Present: normal affect, normal thought process Results - Labs Laboratory Last Values WBC 4.3 X10^3/uL (4.5-11.0) L 05/16/18 10:17 RBC 4.42 X10^6/uL (4.5-5.9) L 05/16/18 10:17 Hgb 12.2 g/dL (13.5-17.5) L 05/16/18 10:17 Hct 37.5 % (41-53) L 05/16/18 10:17 MCV 84.7 fL (80-100) 05/16/18 10:17 MCH 27.7 PG (26-34) 05/16/18 10:17 MCHC 32.6 % (30-36) 05/16/18 10:17 RDW 26.4 % (11.6-14.8) H 05/16/18 10:17 Plt Count 178 X10^3/uL (150-400) 05/16/18 10:17 Neut % (Auto) 53.0 % (50-75) 05/16/18 10:17 Lymph % (Auto) 29.5 % (25-40) 05/16/18 10:17 [place] % (Auto) 15.5 % (3-14) H 05/16/18 10:17 Eos % (Auto) 1.8 % (2-4) L 05/16/18 10:17 Baso % (Auto) 0.2 % (0-2) 05/16/18 10:17 Neut # (Auto) 2300 /uL (7362-6770) L 05/16/18 10:17 RBC Morphology See below 05/01/18 13:00 Hypochromasia 1+ H 04/24/18 11:15 Poikilocytosis 2+ H 05/01/18 13:00 Anisocytosis 2+ H 05/01/18 13:00 Ovalocytes 1+ H 05/01/18 13:00 Sodium 142 mmol/L (137-145) 05/16/18 10:17 Potassium 4.4 mmol/L (3.4-5.1) 05/16/18 10:17 Chloride 102 mmol/L (98-107) 05/16/18 10:17 Carbon Dioxide 31 mmol/L (22-32) 05/16/18 10:17 BUN 16 mg/dL (9-20) 05/16/18 10:17 Creatinine 0.70 mg/dL (0.66-1.25) 05/16/18 10:17 Estimated GFR > 60.0 mL/min (>60) 05/16/18 10:17 BUN/Creatinine Ratio 22.9 (6-22) H 05/16/18 10:17 Glucose 84 mg/dL (80-110) 05/16/18 10:17 Calcium 9.3 mg/dL (8.4-10.2) 05/16/18 10:17 Magnesium 2.2 mg/dL (1.6-2.3) 04/10/18 09:29 Total Bilirubin 0.4 mg/dL (0.2-1.3) 05/16/18 10:17 AST 20 IU/L (17-59) 05/16/18 10:17 ALT 27 IU/L (21-72) 05/16/18 10:17 Alkaline Phosphatase 55 U/L (38-126) 05/16/18 10:17 Total Protein 6.5 g/dL (6.3-8.2) 05/16/18 10:17 Albumin 3.7 g/dL (3.5-5.0) 05/16/18 10:17 Globulin 2.8 g/dL (1.7-4.1) 05/16/18 10:17 Albumin/Globulin Ratio 1.3 (1.0-2.8) 05/16/18 10:17 - Imaging Additional studies: Procedures Excision of Duodenum, Via Natural or Artificial Opening Endoscopic, Diagnostic ( 05/01/17) Excision of Stomach, Pylorus, Via Natural or Artificial Opening Endoscopic, Diagnostic (02/02/18) Transfusion of Nonautologous Red Blood Cells into Peripheral Vein, Percutaneous Approach (02/02/18) Venous catheterization, not elsewhere classified (08/07/11) Assessment and Plan (1) 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 Current visit: No Status: Chronic He has tolerated his 1st dose of immunotherapy without any significant toxicity. We will proceed with his 2nd cycle today. It is too soon yet to make any judgment about whether he is responding or not. Clinically he appears to be stable. He will return to clinic in 2 weeks for follow-up.
[2018-05-16 11:22] LABS: Thyroid Stimulating Hormone 3.44 uIU/mL (0.47-4.68)
[2018-05-16] MEDS: SODIUM CHLORIDE 0.9% 100 ML 21 ML IV (11:46)
[2018-05-16] MEDS: NIVOLUMAB 240 MG in SODIUM CHLORIDE 0.9% (CHEMO) 100 ML 248 ML IV (11:46)
[2018-05-30 09:22] VITALS: BP 127/59; PULSE 114; RESP 18; TEMP 37.2
[2018-05-30 09:26] LABS: Basophils Percent Auto 0.6 % (0-2); Eosinophils Percent Auto 1.2 % (2-4); Hematocrit 36.9 % (41-53); Hemoglobin 12.1 g/dL (13.5-17.5); Lymphocytes Percent Auto 22.8 % (25-40); Mean Corpuscular HGB Conc 32.9 % (30-36); Mean Corpuscular Hemoglobin 28.2 PG (26-34); Mean Corpuscular Volume 85.8 fL (80-100); Monocytes Percent Auto 11.7 % (3-14); Neutrophils Absolute Auto 5300 /uL (1500-7000); Neutrophils Percent Auto 63.7 % (50-75); Platelet Count 151 X10^3/uL (150-400); Red Cell Distribution Width 24.9 % (11.6-14.8); White Blood Cell Count 8.3 X10^3/uL (4.5-11.0)
[2018-05-30 09:27] LABS: Add Manual Diff / Slide Review SLIDE REVIEW
[2018-05-30 09:32] LABS: Alanine Aminotransferase 24 IU/L (21-72); Albumin 3.7 g/dL (3.5-5.0); Albumin Globulin Ratio 1.4 (1.0-2.8); Alkaline Phosphatase 56 U/L (38-126); Aspartate Aminotransferase 37 IU/L (17-59); BUN Creatinine Ratio 21.4 (6-22); Bilirubin Total 0.4 mg/dL (0.2-1.3); Blood Urea Nitrogen 15 mg/dL (9-20); Calcium 9.2 mg/dL (8.4-10.2); Carbon Dioxide 30 mmol/L (22-32); Chloride 101 mmol/L (98-107); Estimated Glomerular Filt Rate > 60.0 mL/min (>60); Globulin 2.7 g/dL (1.7-4.1); Glucose 110 mg/dL (80-110); HEMOLYSIS < 15 (0-50); Potassium 4.2 mmol/L (3.4-5.1); Sodium 142 mmol/L (137-145); Total Protein 6.4 g/dL (6.3-8.2)
[2018-05-30 10:06] LABS: Anisocytosis 3+
[2018-05-30 10:07] LABS: Ovalocytes 1+
[2018-05-30] MEDS: DEXAMETHASONE 10 MG/ML VIAL 8 MG IV (10:33)
[2018-05-30] MEDS: ONDANSETRON 8 MG in SODIUM CHLORIDE 0.9% 50 ML 216 ML IV (10:48)
--- NOTE | 2018-05-30 10:49 | P.PNONC_ITS ---
PN -Subjective Interval history: Diagnosis: Squamous cell carcinoma involving the mandible Previous treatment: 1. Radiation therapy finishing July 2017. 2. 2 doses of carboplatin for progressive disease 3. 2 doses of Opdivo Interval history: Patient is a 72-year-old man who returns today for follow-up of squamous cell carcinoma involving the jaw and mandible. Since his last visit here, he has had some progression of the lesion in his mandible. He notes that it has been increasing in size and has been draining more. He notes some increasing tenderness for around the mass extending up into the cheek and down into the neck. The raw area inside his cheek is also enlarged. He still able to eat okay and has actually gained a few lb. He is not having any trouble swallowing. He denies any fevers or chills. No new skin rash. No diarrhea. No shortness of breath or cough. He has been using morphine for his pain. He has taking 1 or 2 tablets at a time and taking about 5 or 6 tablets a day. His medications include Lipitor morphine pantoprazole Xarelto His past medical history is notable for atrial fibrillation and a prior TIA. 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 - Patient Self-Reported Symptoms SR Constitution: Weight loss/gain SR eye issues: Vision changes SR ears, nose, mouth, throat issues: Cough, Changes in taste SR respiratory issues: Cough, Mucous SR Cardiovascular issues: Dizzy/lightheaded SR Skin issues: Dry skin, Skin rash or itching SR Gastrointestinal issues: Poor or no appetite, Heartburn SR Genitourinary issues: Frequent urination, Burning/painful urination SR Musculoskeletal issues: Cold hands or feet, Difficulty walking SR Neuro issues: Lightheaded/dizzy, Numbness or tingling, Difficulty balancing SR Hematologic issues: Swollen lymph nodes SR Endocrine issues: Excessive urination Home Medications and Allergies Home Medications Medication Instructions Recorded Confirmed Type atorvastatin 40 mg PO HS #90 tab 09/29/17 04/10/18 Rx oxycodone 10 mg tablet 10 mg PO Q4-6H PRN #120 tab 02/22/18 04/10/18 Rx Disability Parking Permit 02/27/18 03/02/18 History rivaroxaban [Xarelto] 15 mg PO QPM 02/27/18 04/10/18 History pantoprazole 40 mg PO BID 02/28/18 04/10/18 History amoxicillin-pot clavulanate 1 tab PO TID 21 Days #63 tab 05/30/18 Rx [Augmentin] morphine 15 mg PO Q6H PRN #100 tab 05/30/18 Rx morphine [MS Contin] 30 mg PO Q12H 30 Days #60 tab 05/30/18 Rx Allergies Allergy/AdvReac Type Severity Reaction Status Date / Time No Known Drug Allergies Allergy Verified 03/15/18 13:43 Exam - Constitutional positive no acute distress, positive average body habitus - Routine HEENT Exam Head: Present: normocephalic, atraumatic Eye: Present: EOMI, PERRL ENT: Present: mucous membranes moist Comments: His right-sided mass has increased in size and is further rotated the skin. It measures about 4-5 cm in diameter and is necrotic. There is foul-smelling purulence. Results - Labs Laboratory Last Values WBC 8.3 X10^3/uL (4.5-11.0) 05/30/18 09:18 RBC 4.30 X10^6/uL (4.5-5.9) L 05/30/18 09:18 Hgb 12.1 g/dL (13.5-17.5) L 05/30/18 09:18 Hct 36.9 % (41-53) L 05/30/18 09:18 MCV 85.8 fL (80-100) 05/30/18 09:18 MCH 28.2 PG (26-34) 05/30/18 09:18 MCHC 32.9 % (30-36) 05/30/18 09:18 RDW 24.9 % (11.6-14.8) H 05/30/18 09:18 Plt Count 151 X10^3/uL (150-400) 05/30/18 09:18 Neut % (Auto) 63.7 % (50-75) 05/30/18 09:18 Lymph % (Auto) 22.8 % (25-40) L 05/30/18 09:18 [place] % (Auto) 11.7 % (3-14) 05/30/18 09:18 Eos % (Auto) 1.2 % (2-4) L 05/30/18 09:18 Baso % (Auto) 0.6 % (0-2) 05/30/18 09:18 Neut # (Auto) 5300 /uL (5563-2863) 05/30/18 09:18 RBC Morphology See below 05/30/18 09:18 Hypochromasia 1+ H 04/24/18 11:15 Poikilocytosis 2+ H 05/01/18 13:00 Anisocytosis 3+ H 05/30/18 09:18 Ovalocytes 1+ H 05/30/18 09:18 Sodium 142 mmol/L (137-145) 05/30/18 09:18 Potassium 4.2 mmol/L (3.4-5.1) 05/30/18 09:18 Chloride 101 mmol/L (98-107) 05/30/18 09:18 Carbon Dioxide 30 mmol/L (22-32) 05/30/18 09:18 BUN 15 mg/dL (9-20) 05/30/18 09:18 Creatinine 0.70 mg/dL (0.66-1.25) 05/30/18 09:18 Estimated GFR > 60.0 mL/min (>60) 05/30/18 09:18 BUN/Creatinine Ratio 21.4 (6-22) 05/30/18 09:18 Glucose 110 mg/dL (80-110) 05/30/18 09:18 Calcium 9.2 mg/dL (8.4-10.2) 05/30/18 09:18 Magnesium 2.2 mg/dL (1.6-2.3) 04/10/18 09:29 Total Bilirubin 0.4 mg/dL (0.2-1.3) 05/30/18 09:18 AST 37 IU/L (17-59) 05/30/18 09:18 ALT 24 IU/L (21-72) 05/30/18 09:18 Alkaline Phosphatase 56 U/L (38-126) 05/30/18 09:18 Total Protein 6.4 g/dL (6.3-8.2) 05/30/18 09:18 Albumin 3.7 g/dL (3.5-5.0) 05/30/18 09:18 Globulin 2.7 g/dL (1.7-4.1) 05/30/18 09:18 Albumin/Globulin Ratio 1.4 (1.0-2.8) 05/30/18 09:18 TSH 3.44 uIU/mL (0.47-4.68) 05/16/18 10:17 - Imaging Additional studies: Procedures Excision of Duodenum, Via Natural or Artificial Opening Endoscopic, Diagnostic ( 05/01/17) Excision of Stomach, Pylorus, Via Natural or Artificial Opening Endoscopic, Diagnostic (02/02/18) Transfusion of Nonautologous Red Blood Cells into Peripheral Vein, Percutaneous Approach (02/02/18) Venous catheterization, not elsewhere classified (08/07/11) Assessment and Plan (1) 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 Current visit: No Status: Chronic He has been tolerating his immunotherapy without any significant difficulty but unfortunately is obviously progressing. We discussed additional options today including a trial of either Taxol or Taxotere. Side effects including alopecia nausea vomiting myelosuppression fatigue reviewed with the patient. He is willing to try it. I did explain that the likelihood of response is low perhaps on the order of about 10% or so. We did talk about the possibility of switching to supportive care or hospice. He would prefer to continue on with some therapy for now. If he fails to respond to taxing, not sure that he has any other viable or practical treatment options. Will go ahead with Taxotere as soon as can be practically arranged, today if possible. I did give him a refill for his morphine as well as some MS Contin 15 mg b.i.d.. He may need to gradually increase the dose of his long-acting morphine. He will return to clinic in about 3 weeks for follow-up.
[2018-05-30] MEDS: SODIUM CHLORIDE 0.9% 100 ML 21 ML IV ×2 (11:40→13:10)
[2018-05-30] MEDS: SODIUM CHLORIDE EXCEL IV (11:40)
[2018-05-30] MEDS: DOCETAXEL IV (11:40)
--- NOTE | 2018-05-30 11:54 | PC.NURSE ---
Addendum entered by Isa Delgado R.N. 05/30/18 14:06: Obtained order for wound care consult (restorix). Order and pertinent info faxed to Nidia with a note informing her that Huyen is working on the prior auth. Original Note: Message left with intake nurse at [facility] regarding suggestions for care of wound/tumor that is on right mandible/cheek area. Awaiting return call.
[2018-05-30] MEDS: INFLUENZA VACCINE 0.5 ML SYRINGE IM (13:09)
== END ==
PROVIDERS: Family Provider Family Medicine; PCP Family Medicine
DX: Z51.11 Encounter for antineoplastic chemotherapy (principal); C44.329 Squamous cell carcinoma of skin of other parts of face; I48.91 Unspecified atrial fibrillation; Z23 Encounter for immunization; Z79.01 Long term (current) use of anticoagulants; Z85.828 Personal history of other malignant neoplasm of skin
CPT/HCPCS: 36592; 80053; 83735; 84443; 85025; 90471; 90656; 96367; 96375; 96413; 99205; 99214; 99215; J1100; J1453; J2405; J7050; J9045; J9171; J9299; Q2038